=== PATIENT | male | born 1985 | race Caucasian/White ===

== ENCOUNTER 2017-10-20 00:30 | Emergency (ER) | payer OTHER ==
[~2017-10-20] VITALS: Ht 165.1 cm; Wt 72.6 kg
[2017-10-20 00:34] VITALS: BP 120/49
--- NOTE | 2017-10-20 00:41 | ED NECK/BACK PAIN COMPLAINT ---
History of Present Illness General Chief Complaint: Low Back Pain/Injury Stated Complaint: LWR BACK SOLOMON, [facility] Source: patient Exam Limitations: no limitations Vital Signs & Intake/Output Vital Signs & Intake/Output Vital Signs Date Time Temp Pulse Resp B/P B/P Pulse O2 O2 Flow FiO2 Mean Ox Delivery Rate 10/20 0034 97.5 117 12 120/49 100 Room Air Allergies Coded Allergies: No Known Drug Allergies (NKDA 10/20/17) Reconcile Medications Cyclobenzaprine HCl 10 MG TABLET 1 TAB PO TID PRN MUSCLE SPASM Ibuprofen 800 MG TABLET 1 TAB PO TID PRN pain Oxycodone HCl/Acetaminophen (Percocet 5-325 MG Tablet) 5 MG-325 MG TABLET 1 TAB PO 4XDP PRN PAIN TEN...[id number] Triage Note: PT TO ED C/O LOW BACK PAIN CONSTANT FOR A WEEK. DENIES INJURY. DENIES UTI S/S. "I CAN HARDLY GET OUT OF BED" PT SOBBING IN TRIAGE. IS BAREFOOT. "I COULDN'T GET MY SHOES ON" "I'VE BEEN TAKING TYLENOL AND IBUPROFIN BUT IT'S NOT HELPING. LAST TOOK AT 0300, NONE ALL DAY Triage Nurses Notes Reviewed? yes Onset: Gradual Duration: day(s):, waxing and waning Timing: recent history Quality/Severity: moderate Location: lumbar spine Radiation: none Method of Injury: unknown Loss of Consciousness: no loss of consciousness Modifying Factors: movement Associated Symptoms: muscle spasm HPI: 31 YO GENTLEMAN in prior good health presents to ED with right sided lower lumbar pain x 1 week. He notes "the pain is so bad I need to be admitted to the hospital." He last took ibuprofen 22 hours ago, "because I didn't have any money for medications." He notes pain and muscle spasm with movement. He notes no recent trauma, no bowel or bladder issues. He is otherwise well. Past History Travel History Traveled to [place] past 21 day No Medical History Any Pertinent Medical History? see below for history Respiratory: asthma Surgical History Surgical History: non-contributory Psychosocial History What is your primary language Belarusian Tobacco Use: Current Daily Use Daily Tobacco Use Amount/Type: => 5 Cigarettes daily ETOH Use: occasional use Illicit Drug Use: denies illicit drug use Family History Hx Contributory? No Review of Systems Review of Systems Constitutional: Reports: no symptoms. Eyes: Reports: no symptoms. Ears, Nose, Throat, Mouth: Reports: no symptoms. Respiratory: Reports: no symptoms. Cardiovascular: Reports: no symptoms. Gastrointestinal/Abdominal: Reports: no symptoms. Musculoskeletal: Reports: no symptoms. Skin: Reports: no symptoms. Neurological/Psychological: Reports: no symptoms. All Other Systems: Reviewed and Negative Physical Exam Physical Exam General Appearance: well developed/nourished, mild distress Head: atraumatic Eyes: Bilateral: normal appearance. Ears, Nose, Throat, Mouth: hearing grossly normal Neck: normal inspection, supple, full range of motion, normal alignment Respiratory: normal breath sounds Cardiovascular: regular rate/rhythm Gastrointestinal: soft, non-tender Back: normal inspection, muscle spasm, no vertebral tenderness, right lower lumber muscle spasm to palpation. no focal bony tenderness. no rash. no swelling. Extremities: normal range of motion Neurologic/Psych: awake, alert, oriented x 3, normal mood/affect Skin: intact, normal color, warm/dry Comments: dtr's, light touch, strength in lower extremities is intact. Core Measures CVA/TIA Diagnosis: No Progress Differential Diagnosis: muscle spasm vs disc herniation vs other. Plan of Care: Current Medications Sig/Sue Start time Last Medication Dose Stop Time Status Admin Cyclobenzaprine HCl 10 MG ONCE ONE 10/20 99 UNVr (Flexeril 10MG Tab) 10/20 100 Ketorolac 60 MG ONCE ONE 10/20 99 UNVr Tromethamine 10/20 100 (Toradol) Oxycodone/ 1 TAB ONCE ONE 10/20 99 UNVr Acetaminophen 10/20 100 (Percocet) Departure Departure Disposition: HOME OR SELF CARE Condition: Stable Clinical Impression Primary Impression: Back pain Referrals: Patient Has No Primary Care Dr (PCP/Family) Additional Instructions: follow up with primary care Departure Forms: Customer Survey General Discharge Information Prescriptions: Current Visit Scripts Ibuprofen 1 TAB PO TID PRN pain #30 TAB Cyclobenzaprine HCl 1 TAB PO TID PRN MUSCLE SPASM #30 TAB Oxycodone HCl/Acetaminophen (Percocet 5-325 MG Tablet) 1 TAB PO 4XDP PRN PAIN #10 TAB TEN...[id number] Comments benign neuro exam. pt with muscle spasm on exam and hadn't taken meds in 22 hours... pt referred to primary care to consider PT referral, close follow up advised.
[2017-10-20] MEDS ORDERED: CYCLOBENZAPRINE10 M1 PO (00:49)
[2017-10-20] MEDS ORDERED: IBUPROFEN800 M1 PO (00:49)
[2017-10-20] MEDS ORDERED: PERCOCET 5-3251 EACH PO (00:49)
== END 2017-10-20 01:02 ==
LOC: ERH 00:30
DX: M54.5 Low back pain (principal)
CPT/HCPCS: 96372; J1885

== ENCOUNTER 2017-10-25 05:27 | Inpatient (IN) | payer OTHER ==
[~2017-10-25] VITALS: Ht 167.6 cm; Wt 85.3 kg
[~2017-10-25 05:27] MED LIST: CYCLOBENZAPRINE10 M1 PO; IBUPROFEN800 M1 PO; PERCOCET 5-3251 EACH PO
--- NOTE | 2017-10-25 05:55 | ED NECK/BACK PAIN COMPLAINT ---
See Addendum History of Present Illness General Chief Complaint: Low Back Pain/Injury Stated Complaint: BIBA LOWER BACK PAIN Source: patient, old records, EMS Exam Limitations: no limitations Vital Signs & Intake/Output Vital Signs & Intake/Output Vital Signs Date Time Temp Pulse Resp B/P B/P Pulse O2 O2 Flow FiO2 Mean Ox Delivery Rate 10/25 0750 97.2 104 18 127/57 99 Room Air 10/25 0534 Room Air 10/25 0530 97.1 108 20 119/51 99 Room Air Allergies Coded Allergies: No Known Drug Allergies (NKDA 10/20/17) Reconcile Medications Cyclobenzaprine HCl 10 MG TABLET 1 TAB PO TID PRN MUSCLE SPASM Ibuprofen 800 MG TABLET 1 TAB PO TID PRN pain Oxycodone HCl/Acetaminophen (Percocet 5-325 MG Tablet) 5 MG-325 MG TABLET 1 TAB PO 4XDP PRN PAIN TEN...[id number] Triage Note: PT BIBA FROM HOME C/O L LOWER BACK AND LEG PAIN. HX SCIATICA. PER PT SEEN HERE COUPLE DAYS AGO FOR SAME, GIVEN FLEXERIL AND IBUPROFEN WITH GOOD EFFECT BUT PER PT "IS NOW UNBEARABLE, IT'S NOT HELPING." PT SATTING 99% ON RA, EMS HAD PT ON 02 FOR COMFORT. PT REQUESTING TO BE PLACED BACK ON 02 ON ARRIVAL, PLACED ON 1L NC FOR COMFORT PER PT REQUEST. Triage Nurses Notes Reviewed? yes Onset: Last week Duration: day(s):, constant, continues in ED Timing: recent history Quality/Severity: severe, sharpness Location: lumbar spine, paraspinous muscles Radiation: buttocks, upper legs Method of Injury: unknown Loss of Consciousness: no loss of consciousness Modifying Factors: immobilization, jarring, movement, pain medication Associated Symptoms: muscle spasm HPI: 2 weeks prior to admission patient complains of increasing left low back pain sharp moderate severe associated with limited range of motion worse and movement palpation. He was seen 5 days ago prescribed ibuprofen and Flexeril Percocet with some relief. Returns with continued pain in complains of productive cough with wheezing. He denies fever chills nausea vomiting diarrhea abdominal pain chest pain shortness of breath headache dysuria rash bleeding change in bowel bladder habit change in motor sensory function. (Gila DELONG,Alex) Past History Travel History Traveled to [place] past 21 day No Medical History Any Pertinent Medical History? see below for history Neurological: NONE EENT: NONE Cardiovascular: NONE Respiratory: asthma Gastrointestinal: NONE Hepatic: NONE Renal: NONE Musculoskeletal: sciatica Psychiatric: NONE Endocrine: NONE Blood Disorders: NONE Cancer(s): NONE PRODUCT DEVELOPMENT/Reproductive: NONE Surgical History Surgical History: non-contributory Psychosocial History What is your primary language Azeri Tobacco Use: Current Not Daily Family History Hx Contributory? No (Alex Uriostegui MD) Review of Systems Review of Systems Constitutional: Reports: no symptoms. Eyes: Reports: no symptoms. Ears, Nose, Throat, Mouth: Reports: no symptoms. Respiratory: Reports: no symptoms. Cardiovascular: Reports: no symptoms. Gastrointestinal/Abdominal: Reports: no symptoms. Musculoskeletal: Reports: see HPI, back pain, muscle pain, muscle stiffness. Skin: Reports: no symptoms. Neurological/Psychological: Reports: no symptoms. All Other Systems: Reviewed and Negative (Alex Uriostegui MD) Physical Exam Physical Exam General Appearance: well developed/nourished, alert, awake, anxious, moderate distress Head: atraumatic, normal appearance Eyes: Bilateral: normal appearance, PERRL, EOMI. Ears, Nose, Throat, Mouth: hearing grossly normal Neck: normal inspection, supple, full range of motion, normal alignment Respiratory: normal breath sounds, chest non-tender, no respiratory distress, quiet respiration, lungs clear Cardiovascular: regular rate/rhythm, normal peripheral pulses, norml femoral pulses equa Peripheral Pulses: 4+ carotid (R), 4+ carotid (L) Gastrointestinal: normal bowel sounds, soft, non-tender, no organomegaly Genital/Rectal: normal rectal exam, heme negative stool (no stool,exam glove heme neg) Back: normal inspection, decreased range of motion, muscle spasm Extremities: non-tender, normal range of motion Straight Leg Raising: Right: Pain at ____ degrees (5). Left: Pain at ____ degrees (5). Sensory: Medial Le: L4R, L4L. Top of Foot: 2: L5R, L5L. Sole of Foot: 2: SIR, OG. Motor: Deficit L4 Right: No Deficit L4 Left: No Deficit L5 Right: No Deficit L5 Left: No Deficit S1 Right: No Deficit S1 Right: No DTR: Deficit L4 Left: No Deficit L4 Right: No Deficit S1 Left: No Deficit S1 Right: No Patellar: 3: L4 Right, L4 Left. Neurologic/Psych: no motor/sensory deficits, awake, alert, oriented x 3, normal mood/affect, front desk II-XII nml as tested Skin: intact, normal color, warm/dry Core Measures CVA/TIA Diagnosis: No (Gila DELONG,Alex) Progress Differential Diagnosis: herniated disc, myofascial strain, sciatica Plan of Care: Orders Procedure Date/time Status Nothing by Mouth 10/25 L Active Patient Data 10/25 1644 Active ED Holding Orders 10/25 853 Active Admit to inpatient 10/25 853 Active Vital Signs 10/25 853 Active Code Status 10/25 853 Active CBC WITHOUT DIFFERENTIAL 10/25 708 Complete TYPE & SCREEN (NOT X-MATCH) 10/25 708 Complete MAGNESIUM 10/25 552 Complete COMPREHENSIVE METABOLIC PANEL 10/25 552 Complete CBC WITHOUT DIFFERENTIAL 10/25 552 Complete Laboratory Tests 10/25/17 0721: CBC w Diff NO MAN DIFF REQ, RBC 3.03 L, MCV 73.9 L, MCH 24.0 L, MCHC 32.4 L, RDW 16.6 H, MPV 7.7, Gran % 82.2 H, Lymphocytes % 11.7 L, Monocytes % 5.7, Eosinophils % 0.1, Basophils % 0.3, Absolute Granulocytes 8.0 H, Absolute Lymphocytes 1.1 L, Absolute Monocytes 0.6, Absolute Eosinophils 0, Absolute Basophils 0 10/25/17 0600: Anion Gap 11, Estimated GFR > 60, BUN/Creatinine Ratio 21.7, Glucose 104 H, Calcium 8.3 L, Magnesium 1.8, Total Bilirubin 1.1, AST 25, ALT 42, Alkaline Phosphatase 142 H, Total Protein 5.9 L, Albumin 2.9 L, Globulin 3.0, Albumin/ Globulin Ratio 1.0 L, CBC w Diff NO MAN DIFF REQ, RBC 3.00 L, MCV 73.9 L, MCH 24.0 L, MCHC 32.5 L, RDW 16.6 H, MPV 8.0, Gran % 82.9 H, Lymphocytes % 10.7 L, Monocytes % 6.0, Eosinophils % 0.1, Basophils % 0.3, Absolute Granulocytes 8.3 H, Absolute Lymphocytes 1.1 L, Absolute Monocytes 0.6, Absolute Eosinophils 0, Absolute Basophils 0 Diagnostic Imaging: Viewed by Me: Radiology Read. Discussed w/RAD: Radiology Read. Hand-Off Endorsed To: Sixto Michaels DO Endorsed Time: 709 Pending: labs, Xray (Alex Uriostegui MD) Departure Departure Disposition: STILL A PATIENT Condition: Stable Referrals: Patient Has No Primary Care Dr (PCP/Family) Departure Forms: Customer Survey General Discharge Information (Alex Uriostegui MD) Departure Clinical Impression Primary Impression: Pyriformis syndrome Secondary Impressions: Anemia, Back pain, Intractable back pain Comments 09/25/17 The patient was signed out to me by Dr. Uriostegui. He has significant anemia. He' s been taking large amounts of ibuprofen for his intractable back pain. He is therefore being admitted to the hospital for suspected GI bleed. I spoke to the on-call bioinformatics specialist Dr. Miguel. She instructed me to keep the patient nothing by mouth give IV Protonix and she will see the patient. Admission Note Spoke With: Joshua DELONG,Maureen Documentation of Exam: Documentation of any treatments & extenuating circumstances including Concerns Regarding Discharge (functional status, medication knowledge or non-compliance, living conditions, etc.) that warrant an admission rather than observation: [The patient needs admission for IV narcotic pain medication, IV Protonix, GI consultation, serial hemoglobin and hematocrit, probable upper endoscopy] (Sixto Michaels DO)
[2017-10-25 06:34] LABS: ABSOLUTE BASOPHIL COUNT 0 /CUMM (0.0-0.2); ABSOLUTE EOSINOPHIL COUNT 0 /CUMM (0.0-0.7); ABSOLUTE GRANULOCYTE CT 8.3 /CUMM (1.4-6.5); ABSOLUTE LYMPH COUNT 1.1 /CUMM (1.2-3.4); ABSOLUTE MONOCYTE COUNT 0.6 /CUMM (0.10-0.60); BASOPHIL % 0.3 % (0.0-2.0); EOSINOPHIL % 0.1 % (0-5); GRANULOCYTE % 82.9 % (42.2-75.2); HEMATOCRIT 22.2 % (42-52); MEAN CORPUSCULAR HGB CONC 32.5 G/DL (33.0-37.0); MEAN CORPUSCULAR VOLUME 73.9 FL (80.0-94.0); PLATELET COUNT 458 /CUMM (130-400); RBC DISTRIBUTION WIDTH 16.6 % (11.5-14.5)
[2017-10-25 07:38] LABS: ABSOLUTE BASOPHIL COUNT 0 /CUMM (0.0-0.2); ABSOLUTE EOSINOPHIL COUNT 0 /CUMM (0.0-0.7); ABSOLUTE LYMPH COUNT 1.1 /CUMM (1.2-3.4); ABSOLUTE MONOCYTE COUNT 0.6 /CUMM (0.10-0.60); BASOPHIL % 0.3 % (0.0-2.0); EOSINOPHIL % 0.1 % (0-5); GRANULOCYTE % 82.2 % (42.2-75.2); HEMATOCRIT 22.4 % (42-52); MEAN CORPUSCULAR HGB CONC 32.4 G/DL (33.0-37.0); MEAN CORPUSCULAR VOLUME 73.9 FL (80.0-94.0); MEAN PLATELET VOLUME 7.7 FL (7.4-10.4); PLATELET COUNT 477 /CUMM (130-400); RBC DISTRIBUTION WIDTH 16.6 % (11.5-14.5); RED BLOOD CELL CT 3.03 /CUMM (4.70-6.10); WHITE BLOOD CELL COUNT 9.7 /CUMM (4.8-10.8)
--- NOTE | 2017-10-25 08:10 | RADIOLOGY REPORT ---
EXAMINATION:\H\ \N\XR CHEST CLINICAL INFORMATION: Cough and wheezing COMPARISON: None TECHNIQUE: Frontal view of the chest was obtained. FINDINGS: Heart size within normal limits. Diffuse bilateral interstitial opacities. No focal airspace opacification. No pleural effusion or pneumothorax. Osseous structures are unremarkable. IMPRESSION: Diffuse bilateral interstitial opacities. This could represent infectious/inflammatory airways disease, interstitial pneumonitis or viral pneumonia can have a similar appearance. Interstitial edema could have this appearance although the absence of cardiomegaly and pleural effusions argues against a cardiogenic cause.
--- NOTE | 2017-10-25 08:15 | RADIOLOGY REPORT ---
EXAMINATION: XR LUMBOSACRAL SPINE CLINICAL INFORMATION: Low back pain COMPARISON: None TECHNIQUE: 4 views of the lumbosacral spine were obtained. FINDINGS: There is no evidence of acute fracture. Vertebral body heights and intervertebral disc spaces are maintained. There are bilateral L5 pars defects with grade 1 anterolisthesis of L5 on S1. The sacrum is intact. Sacroiliac joints are symmetric. Soft tissues are unremarkable. IMPRESSION: No evidence of acute fracture or traumatic malalignment. There are bilateral L5 pars defects with grade 1 anterolisthesis of L5 on S1.
--- NOTE | 2017-10-25 09:16 | History & Physical ---
Lucia DELONG,[facility] 10/25/17 0916: General Information and HPI MD Statement: I have seen and personally examined SON AZEVEDO and documented this H&P. The patient is a 31 year old M who presented with a patient stated chief complaint of [low back pain]. Source of Information: patient Exam Limitations: no limitations History of Present Illness: Patient is a 31-year-old male very poor historian with past medical history of asthma presented with chief complaint of low back pain for several weeks. Patient reported constant sharp severe low back pain radiating to the left leg not associated with motor weakness or numbness. Denied any urine or stool incontinence. Patient was so severe to debilitate his life. Patient reported being bedridden for the last couple of weeks because of the pain reported spasm upon moving, coughing or sneezing mainly in the left leg. Patient denied fever or chills however reported night sweats and significant weight loss. Patient denied history of IV drug use.. Patient reported ingestion of "tons" of NSAIDs for pain. Denied any hemoptysis , hematemesis, melena or hematochezia. Patient denied dizziness, blurry vision, chest pain, palpitation. He reported shortness of breath that he referred to it as his asthma. Patient denied any history of bleeding, diathesis, sickle cell anemia or thalassemia. Denied any previous report of low hemoglobin or anemia. Denied history of transfusion. Denied history of any previous surgical operation. Patient reported history of left leg pain in June 2017, had a visit to [facility], was treated with Xarelto for 1 day for suspected DVT however had negative ultrasound per his report. The patient also went to [facility] where he had an MRI left leg and was told to have infection, patient received 1 dose of antibiotic and then discharged home after he spent overnight in the emergency room off antibiotics. This history is not clear and was given later in the day after disclosing the results of his MRI spine of osteomyelitis L5-S1. We are obtaining records from [facility] for clarification. 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 Home Who Do You Live With? roommite Services at Home: None Primary Language: Divehi Smoking Status: Current Some Day Smoker ETOH Use: occasional use Illicit Drug Use: marijuana Living Will? unknown Functional Ability ADLs Independent: dressing, eating, toileting, bathing. 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 Denies: chills, fever. EENTM: Denies: double vision, ear pain. Cardiovascular: Denies: chest pain, palpitations, peripheral edema, syncope. Respiratory: Reports: short of breath. Denies: cough, wheezing. GI: Denies: abdominal pain. Genitourinary: Denies: frequency, hematuria, hesitation. Musculoskeletal: Denies: back pain, joint pain, muscle pain. Skin: Denies: lesions, rash. Neurological/Psychological: Denies: confusion, headache, numbness, paresthesia. Hematologic/Endocrine: Denies: bruising, bleeding. Exam & Diagnostic Data Last 24 Hrs of Vital Signs/I&O Vital Signs Date Time Temp Pulse Resp B/P B/P Pulse O2 O2 Flow FiO2 Mean Ox Delivery Rate 10/25 1443 98.5 68 20 110/75 97 Room Air 10/25 1137 98.2 103 22 110/70 97 Room Air 10/25 0750 97.2 104 18 127/57 99 Room Air 10/25 0534 Room Air 10/25 0530 97.1 108 20 119/51 99 Room Air Intake & Output 10/25 1600 10/25 0800 10/25 0000 Intake Total 0 Output Total 300 Balance -300 0 Intake, Oral 0 Output, Urine 300 Patient 85.275 kg 77.111 kg Weight Weight Bed scale Reported by Patient Measurement Method Physical Exam General Appearance Alert, Oriented X3, Cooperative, Mild Distress Skin No Rashes, No Breakdown, No Significant Lesion, No oral mucous memebrane pathology Skin Temp/Moisture Exam: Warm/Dry HEENT Atraumatic, PERRLA, EOMI, Mucous Membr. moist/pink Neck Supple Lymphatic no cervicallymphadenopathy Cardiovascular Regular Rate, Normal S1, Normal S2, No Murmurs Lungs Clear to Auscultation, Normal Air Movement Abdomen Normal Bowel Sounds, Soft, No Tenderness Neurological Normal Speech, Strength at 5/5 X4 Ext, Normal Tone, Sensation Intact, Cranial Nerves 3-12 NL, Reflexes 2+, left straight leg test positive vertebral tenderness of lumber spine, paraspinal muscle spasm Extremities No Clubbing, No Cyanosis, No Edema, Normal Pulses Rectal Guiac Negative Assessment/Plan Assessment: Patient is a 31-year-old male very poor historian with past medical history of asthma presented with chief complaint of low back pain for several weeks. Vital signs on admission at febrile temperature 97.1, 108, blood pressure 119/51 , saturating 99% on room air Labs significant for white blood cell 10, H&H 7.2/22.2, MCV 73.9, platelet 458, BUN/creatinine 13/0.6, alkaline phosphatase 148. Chest x-ray showed diffuse bilateral interstitial infiltrates that can represent inflammatory airway versus infectious cause. X-ray of lumber spine No evidence of acute fracture or traumatic malalignment. There are bilateral L5 pars defects with grade 1 anterolisthesis of L5 on S1. Problem list #Intractable lower back pain. Differential diagnosis include herniating disc given lumbar spine tenderness with positive left straight leg test, ankylosing spondylitis given his age, symptoms for multiple weeks improve with NSAIDs, constitutional symptoms weight loss and night sweats #Microcytic hypochromic anemia with negative upper endoscopy for upper GI bleed differential include iron deficiency anemia versus thalassemia Plan Admit to general medical floor Vitals every shift Typed and cross matched Iron studies, vitamin D, folate and vitamin B12 Peripheral smear Reticulocyte count C-reactive protein and ESR MRI lumbar spine Urine toxicology Coagulation profile Adequate pain management Diet regular DVT prophylaxis Alps Code full ##Received a call from [facility] for MRI lumbar spine results of osteomyelitis in L5, S1 with adjacent epidural phlegmon in which epidural abscess can't be excluded. Diffuse decrease bone marrow signaL. IMPRESSION: - Imaging findings are most compatible with osteomyelitis discitis at L5-S1 with adjacent epidural phlegmon resulting in mild narrowing of the central canal and partial effacement of the subarticular zones bilaterally, contacting the traversing S1 nerve roots bilaterally. Postcontrast imaging could be obtained to assess for any discrete abscesses. - As noted on the recent plain films there are bilateral L5 pars defects and there is grade 1 spondylolytic anterolisthesis of L5 on S1 with listhesis, uncovered disc, and degenerative changes resulting in severe bilateral foraminal stenosis at L5-S1 with compression of the exiting L5 nerve roots bilaterally, greater on the left side. - There is decreased marrow signal throughout the imaged spinal elements and bony pelvis. I confirmed with the referring clinician that this patient has underlying anemia and the low marrow signal is most likely attributable to anemia. Marrow replacement processes could appear similar. - The partially imaged bladder is significantly distended. Based on MRI results, after discussing with the attending Dr. Hernandez. -Obtain ID consultation---recommendation to follow off antibiotics -Obtain hematology consultation--- recommendation for bone vora biopsy -Obtain neurosurgery consultation--- pending recommendation -Contact IR for bone biopsy--- patient is set up for CT guided bone biopsy and bone marrow biopsy. Patient will be nothing by mouth at midnight, avoid NSAIDs and anticoagulation. -Obtain records from [facility]--- SENT -We'll transfuse 1 unit of blood As Ranked By This Provider Problem List: 1. Back pain 2. Osteomyelitis Core Measures/Misc (03/11) Acute Coronary Syndrome ACS Diagnosis: No Congestive Heart Failure Congestive Heart Failure Diagnosis No Cerebrovascular Accident CVA/TIA Diagnosis: No VTE (View Protocol) VTE Risk Factors Age>40 No Mechanical VTE Prophylaxis d/t N/A MechProphylax Ordered No VTE Pharm Prophylaxis d/t Surgical Contraindication Sepsis (View protocol) Sepsis Present: No Parminder Hernandez MD 10/25/17 1077: General Information and HPI Allergies/Medications Home Med list Cyclobenzaprine HCl 10 MG TABLET 1 TAB PO TID PRN MUSCLE SPASM Ibuprofen 800 MG TABLET 1 TAB PO TID PRN pain Oxycodone HCl/Acetaminophen (Percocet 5-325 MG Tablet) 5 MG-325 MG TABLET 1 TAB PO 4XDP PRN PAIN TEN...[id number] Zolpidem Tartrate (Ambien) 10 MG TABLET 1 TAB PO QPMP PRN SLEEP (Reported) Attending MD Review Statement Attending Statement Attending MD Statement: examined this patient, discuss w/resident/PA/MANUFACTURING SR ENGINEER, agreed w/resident/PA/MANUFACTURING SR ENGINEER, reviewed EMR data (avail), reviewed images, amended to note Attending Assessment/Plan: The patient is a 31 yo male with h/o asthma who presented in the [place] ED with c/o low back pain radiating to his left leg for several weeks. Pain was described as severe and he noted spasms. He endorsed taking large amounts of NSAIDS for pain relief and was noted to have significant anemia (heme negative stool). He underwent EGD with Dr. Miguel that was not remarkable. It was difficult to obtain history from patient who initially said he had not seen an MD (he indeed has no PCP), however he later spoke of being admitted to [facility] in [place] for leg pain (had MRI/US) transiently was on Xarelto and was discharged with subsequent admission to [facility] where he saw a surgeon who gave him some IV antibiotics. At no time was he informed that he had an anemia. He denies fever, chills, other family members with anemia (he is 100% Citizen Of [place] descent). He denied any hematemesis of blood per rectum. MRI done today suggested possible osteomyelitis/discitis L4/5. Patient stated to me he was dishonorably discharged from [employer] many years ago due to drug abuse (cocaine), however no h/o IV drug abuse or any recent drug use. He was stationed in 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 Physical Exam: VS: T 98.5, P 6, R 20, BP 110/75, PO 97% HEENT: eyes- PERRLA, EOMI sara- moist mucosa Neck: supple, no adenopathy Chest: clear Cor: RRR nl S1, S2 w/o murm Abd: BS+, soft, NT, - HSM Ext: no edema Back: + lower lumbar spasm/tenderness L>R Neuro: alert & oriented x 3, motor, sensory, DTR's LE intact Labs/Tests- as above Impression/Plan: #Intractable Back Pain - with MRI suggesting L5-S1 Discitis/?Osteomyelitis with epidural involvement. Neuro exam normal. Unclear source of infection. No h/o IV drug abuse (distant h/o cocaine use in service, no IV drugs in past). No fever, WBC normal. Appreciate ID consult. Plan: No antibiotics at present. IR to do CT guided biopsy/culture L5-S1 tomorrow. Treat with morphine/percocet/Valium for pain and spasm at present. Neurosurgical consult. #Anemia- EGD negative. Unclear if patient has baseline anemia (?thalassemia). He is of Citizen Of [place] descent. Has had bloodwork done recently at other hospitals ([facility] in [place] and [facility] in [place]) and was not informed by anyone that he was anemic. Has been using NSAIDs, however EGD negative and no history of dark stools/blood per rectum. Of note, the patient was at [place] and there are reported cases of myelodysplasia and other cancers (renal, etc.) felt due to toxin exposure in water (service connected illness). Plan: Agree with checking iron studies, B12, retic count, etc. Transfuse 1 unit. Heme/Onc evaluation. Will do bone marrow biopsy in [place] tomorrow. From [place] Website: [place] has established a presumptive service connection for Veterans, Reservists, and National Guard members exposed to contaminants in the water supply at [place] from January 23, 1953 through June 24, 1987 who later developed one of the following eight diseases: * Adult leukemia * Aplastic anemia and other myelodysplastic syndromes * Bladder cancer * Kidney cancer * Liver cancer * Multiple myeloma * Non-Hodgkin's lymphoma * Parkinson's disease Presently, these conditions are the only ones for which there is sufficient scientific and medical evidence to support the creation of presumptions; however , [place] will continue to review relevant information as it becomes available.
--- NOTE | 2017-10-25 10:40 | Proc Note Endoscopy ---
Endoscopy Procedure Medical History: unchanged Mental Status: alert/oriented Heart/Lung Eval Prior to Sedation: within normal limits Candidate for Sedation? Yes Procedure Date: 10/25/17 Procedure Type: EGD Machine Feeder Floorperson: MD Villegas Deborah E. ASA Classification: I Indications: 1. Microcytic anemia 2. Acute blood loss anemia 3. Chronic NSAID use Instrument: diagnostic gastroscope Meds Received: MAC Patient's Tolerance: good Complications: none Extent Reached: second part of duodenum Procedure: Note: Informed consent was obtained prior to procedure. Risks and benefits of procedure were discussed with patient. Potential complications discussed included perforation, bleeding, abdominal pain, and adverse reaction to medications. It was explained that iany or all of these complications could result in the need for extended hospitalization, emergency surgery, transfusion of packed red blood cells (with the risk of HIV or hepatitis virus), intubation with mechanical ventilation, and possible need for antibiotics. It was further explained that an existing tumor polyp or mucosal abnormality might not be identified at the time of the procedure thus resulting in a missed opportunity for early diagnosis and treatment of a gastrointestinal malignancy or disease with possible interval development of a gastrointestinal cancer or other disease with possible worsening of clinical condition in the interval between endoscopies. It was also discussed that complications are not limited to those listed above. Possible alternatives to endoscopic treatment or evaluation were discussed. All questions were answered. Continuous EKG and blood pressure monitors were attached. Supplemental oxygen was provided with O2 Sat monitoring. Patient was placed in the left lateral decubitus position. A surgical timeout was performed. All persons in the room were identified. All concerns were expressed and answered. A bite block was placed in the mouth and sedation was administered by anesthesia and titrated to comfort prior to starting the procedure. The Olympus upper endoscope was advanced under direct vision to the level of the third portion of the duodenum. Esophagus: The esophagus had a normal mucosal vascular pattern throughout its entirety. The GE junction was identified and was normal. The Z line was located at 43 cm from the incisors and was nondisplaced. Stomach: The stomach had a normal mucosal and vascular pattern throughout its entirety. Retroflexed view of the cardiofundic region revealed a normal mucosal and vascular pattern. There were normal rugae and normal distensibility. The pylorus was patent and easily intubated. Biopsies were obtained from the antrum , angularis, gastric body and lesser curvature to rule out H. Pylori. Duodenum: The duodenum was fully examined from bulb down to the third portion. There was a normal mucosal vascular pattern throughout. With the endoscope in the forward-viewing position, it was slowly withdrawn and all areas were re-inspected and findings are as described previously. Patient tolerated the procedure well. EBL: None Specimens Removed: None Findings: Normal upper endoscopy Impression: Normal upper endoscopy Patient may have either small bowel or colonic ulcers related to NSAID use. We' ll must also consider other etiologies for patient's microcytic anemia. Recommendations: 1. Admit for pain control given sciatica 2. Given sciatica I do not believe the patient will tolerate preparation for colonoscopy 3. Would check iron studies B12 and folate as well as stool Hemoccult 4. Patient will need outpatient colonoscopy to complete workup 5. Monitor for signs of GI blood loss. Transfuse to keep hemoglobin over 7. 6. Patient to avoid NSAIDs 7. GI will sign off for now. However do not hesitate to reconsult us as needed. Please make sure the patient has follow-up with GI after discharge.
[2017-10-25 11:37] VITALS: BP 110/70
--- NOTE | 2017-10-25 13:33 | MRI REPORT ---
MR LUMBAR SPINE WITHOUT CONTRAST CLINICAL INFORMATION: Lower back pain with x-ray positive for grade 1 anterolisthesis of L5 on S1 and L5 pars defects. COMPARISON: Lumbar spine radiographs performed earlier the same day. TECHNIQUE: MRI of the lumbar spine without contrast was obtained using routine sequences. FINDINGS: There is abnormal signal throughout the L5-S1 disc and there are T2 signal changes involving the opposing L5 and S1 endplates. There is increased signal on T2-weighted imaging within the paravertebral soft tissues at L5-S1 with these findings in constellation most concerning for the presence of osteomyelitis discitis. There is soft tissue effacement of the ventral epidural space at L5-S1, most likely ventral epidural phlegmon. Postcontrast imaging could be obtained to assess for any discrete abscesses. As noted on the recent plain films there are bilateral L5 pars defects and there is grade 1 spondylolytic anterolisthesis of L5 on S1. There is no additional bone marrow edema. No acute fractures are appreciated. There is decreased marrow signal throughout the imaged spinal elements and bony pelvis. I confirmed with the referring clinician that this patient has underlying anemia and the low marrow signal is most likely attributable to anemia. Marrow replacement processes could appear similar. The conus terminates at the L1-L2 disc level. The partially imaged bladder is significantly distended. The L1-L2, L2-L3, and L3-L4 disc contours are normal. There is no central canal stenosis and there is no foraminal stenosis at these levels. L4-L5: There is a diffuse annular disc bulge and there is mild to moderate bilateral hypertrophic facet arthropathy. No central canal stenosis. Mild foraminal narrowing bilaterally. L5-S1: Grade 1 spondylolytic anterolisthesis in the setting of bilateral L5 pars defects. Uncovered disc with a superimposed diffuse annular bulge. Epidural phlegmon contacts the traversing S1 nerve roots within the subarticular zones bilaterally. Severe bilateral foraminal stenosis with compression of the exiting L5 nerve roots bilaterally, greater on the left side. IMPRESSION: - Imaging findings are most compatible with osteomyelitis discitis at L5-S1 with adjacent epidural phlegmon resulting in mild narrowing of the central canal and partial effacement of the subarticular zones bilaterally, contacting the traversing S1 nerve roots bilaterally. Postcontrast imaging could be obtained to assess for any discrete abscesses. - As noted on the recent plain films there are bilateral L5 pars defects and there is grade 1 spondylolytic anterolisthesis of L5 on S1 with listhesis, uncovered disc, and degenerative changes resulting in severe bilateral foraminal stenosis at L5-S1 with compression of the exiting L5 nerve roots bilaterally, greater on the left side. - There is decreased marrow signal throughout the imaged spinal elements and bony pelvis. I confirmed with the referring clinician that this patient has underlying anemia and the low marrow signal is most likely attributable to anemia. Marrow replacement processes could appear similar. - The partially imaged bladder is significantly distended. These findings were discussed with Dr. Myers at 1:20 PM on 10/25/2017.
--- NOTE | 2017-10-25 14:34 | Cons- Gastroenterology ---
General Information and HPI Consulting Request Date of Consult: 10/25/17 Requested By: Parminder Hernandez MD Reason for Consult: 1. Microcytic anemia 2. Chronic use of NSAIDs Source of Information: patient, electronic medical record Exam Limitations: no limitations History of Present Illness: Patient is a 31-year-old white male who was seen in the ED with a chief complaint of sciatic-type pain radiating down his left leg. Patient had been discharged to home on NSAIDs but returned by ambulance this morning with increasing pain requiring morphine for control. On admission patient was found to have a hemoglobin of 7 with microcytic indices. He has had no nausea vomiting or hematemesis and denies melena. He has no prior history of peptic ulcer disease. He had been feeling short of breath but denies palpitations. He has no prior history of peptic ulcer disease. Allergies/Medications Allergies: Coded Allergies: No Known Drug Allergies (NKDA 10/20/17) Home Med List: Cyclobenzaprine HCl 10 MG TABLET 1 TAB PO TID PRN MUSCLE SPASM Ibuprofen 800 MG TABLET 1 TAB PO TID PRN pain Oxycodone HCl/Acetaminophen (Percocet 5-325 MG Tablet) 5 MG-325 MG TABLET 1 TAB PO 4XDP PRN PAIN TEN...[id number] Current Medications: Current Medications Sig/Sue Start time Last Medication Dose Route Stop Time Status Admin Chlorhexidine 1 GM .STK-MED ONE 10/25 1149 DC Gluconate TOP 10/25 1150 Diazepam 2 MG 4 TIMES/DAY PRN 10/25 1315 AC 10/25 PO 1316 Enoxaparin Sodium 40 MG DAILY 10/25 1041 DC SC Ergocalciferol 50,000 IU QTHURS 10/25 1315 AC PO 12/06 0901 Ferrous Sulfate 325 MG TID 10/25 1400 AC 10/25 PO 1400 Ibuprofen 600 MG Q6 10/25 1200 DC 10/25 PO 1127 Ketorolac 0 .STK-MED ONE 10/25 06 DC Tromethamine .ROUTE Ketorolac 30 MG ONCE ONE 10/25 06 DC 10/25 Tromethamine IV 10/25 600 0606 Lorazepam 0 .STK-MED ONE 10/25 0602 DC .ROUTE Lorazepam 1 MG ONCE ONE 10/25 0600 DC 10/25 IV 10/25 0601 0606 Morphine Sulfate 2 MG Q6P PRN 10/25 1400 AC IV Morphine Sulfate 0 .STK-MED ONE 10/25 0722 DC .ROUTE Morphine Sulfate 4 MG ONCE ONE 10/25 0715 DC 10/25 IV 10/25 0716 0721 Oxycodone/ 2 TAB Q6P PRN 10/25 1415 AC Acetaminophen PO Oxycodone/ 1 TAB ONCE ONE 10/25 1400 DC / Acetaminophen PO 10/25 1401 1412 Oxycodone/ 1 TAB Q6P PRN 10/25 1300 DC 10/25 Acetaminophen PO 1316 Pantoprazole Sodium 0 .STK-MED ONE 10/25 0920 DC IV Pantoprazole Sodium 40 MG ONCE ONE 10/25 0900 DC 10/25 IV 10/25 0901 0916 Polyethylene Glycol 17 GM DAILY 10/26 0900 AC PO Past History Travel History Traveled to [place] past 21 day No Medical History Neurological: NONE EENT: NONE Cardiovascular: NONE Respiratory: asthma Gastrointestinal: NONE Hepatic: NONE Renal: NONE Musculoskeletal: sciatica Psychiatric: NONE Endocrine: NONE Blood Disorders: NONE Cancer(s): NONE RN 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/Reproductive: NONE Surgical History Surgical History: non-contributory Psychosocial History Smoking Status: Light Tobacco Smoker Exam & Diagnostic Data Vital Signs and I&O Vital Signs Date Time Temp Pulse Resp B/P B/P Pulse O2 O2 Flow FiO2 Mean Ox Delivery Rate 10/25 1137 98.2 103 22 110/70 97 Room Air 10/25 0750 97.2 104 18 127/57 99 Room Air 10/25 0534 Room Air 10/25 0530 97.1 108 20 119/51 99 Room Air Intake & Output 10/25 1600 10/25 0400 10/24 1600 10/24 0400 10/23 1600 10/23 0400 Intake Total 0 Output Total Balance 0 Intake, Oral 0 Patient 188 lb Weight Weight Bed scale Measurement Method Physical Exam General Appearance: well developed/nourished, alert, awake, moderate distress Head: atraumatic, normal appearance Eyes: Bilateral: normal appearance. Ears, Nose, Throat: hearing grossly normal Neck: normal inspection, supple, full range of motion Respiratory: normal breath sounds, lungs clear Cardiovascular: regular rate/rhythm, Normal S1 and S2, without rub, murmur, or gallop. Gastrointestinal: normal bowel sounds, soft, non-tender Extremities: normal inspection, no edema Neurologic/Psych: awake, alert, oriented x 3 Cranial Nerves: cranial nerves II-12 grossly intact Skin: intact, normal color, warm/dry Results Pertinent Lab Results: Laboratory Tests 10/25 10/25 10/25 1405 1310 1305 Coagulation PT Pending INR Pending APTT Pending Hematology ESR Westergren Pending Toxicology Methadone Screen (>300 NG/ML) Pending Barbiturate Screen (>200 NG/ML) Pending Ur Phencyclidine Scrn (>25 NG/ML) Pending Amphetamines Screen (>1000 NG/ML) Pending U Benzodiazepines Scrn (>200 NG/ML) Pending Urine Cocaine Screen (>300 NG/ML) Pending Urine Cannabis Screen (>50 NG/ML) Pending Urines Urine Color (YEL,AMB,STR) YEL Urine Clarity (CLEAR) CLEAR Urine pH (5.0 - 8.0) 6.0 Ur Specific [place] (1.001 - 1.035) 1.010 Urine Protein (NEG,<30 MG/DL) NEG Urine Ketones (NEG) NEG Urine Nitrite (NEG) NEG Urine Bilirubin (NEG) NEG Urine Urobilinogen (0.1 - 1.0 EU/dl) 0.2 Ur Leukocyte Esterase (NEG) NEG Ur Microscopic EXAM NOT REQUIRED Urine Hemoglobin (NEG) NEG Urine Glucose (N MG/DL) NEG 10/25 10/25 1042 0721 Chemistry C-Reactive Prot, Quant Cancelled Hematology CBC w Diff NO MAN DIFF REQ WBC (4.8 - 10.8 /CUMM) 9.7 RBC (4.70 - 6.10 /CUMM) 3.03 L Hgb (14.0 - 18.0 G/DL) 7.3 *L Hct (42 - 52 %) 22.4 L MCV (80.0 - 94.0 FL) 73.9 L MCH (27.0 - 31.0 PG) 24.0 L MCHC (33.0 - 37.0 G/DL) 32.4 L RDW (11.5 - 14.5 %) 16.6 H Plt Count (130 - 400 /CUMM) 477 H MPV (7.4 - 10.4 FL) 7.7 Gran % (42.2 - 75.2 %) 82.2 H Lymphocytes % (20.5 - 51.1 %) 11.7 L Monocytes % (1.7 - 9.3 %) 5.7 Eosinophils % (0 - 5 %) 0.1 Basophils % (0.0 - 2.0 %) 0.3 Absolute Granulocytes (1.4 - 6.5 /CUMM) 8.0 H Absolute Lymphocytes (1.2 - 3.4 /CUMM) 1.1 L Absolute Monocytes (0.10 - 0.60 /CUMM) 0.6 Absolute Eosinophils (0.0 - 0.7 /CUMM) 0 Absolute Basophils (0.0 - 0.2 /CUMM) 0 Retic Count (0.5 - 2.0 %) Pending 10/25 0600 Chemistry Sodium (137 - 145 mmol/L) 139 Potassium (3.5 - 5.1 mmol/L) 3.6 Chloride (98 - 107 mmol/L) 104 Carbon Dioxide (22 - 30 mmol/L) 24 Anion Gap (5 - 16) 11 BUN (9 - 20 mg/dL) 13 Creatinine (0.7 - 1.2 mg/dL) 0.6 L Estimated GFR (>60 ml/min) > 60 BUN/Creatinine Ratio (7 - 25 %) 21.7 Glucose (65 - 99 mg/dL) 104 H Calcium (8.4 - 10.2 mg/dL) 8.3 L Magnesium (1.6 - 2.3 mg/dL) 1.8 Iron (49 - 181 ug/dL) 30 L TIBC (261 - 462 ug/dL) 231 L Ferritin (17.9 - 464 ng/mL) 414.0 Total Bilirubin (0.2 - 1.3 mg/dL) 1.1 AST (17 - 59 U/L) 25 ALT (21 - 72 U/L) 42 Alkaline Phosphatase (< 127 U/L) 142 H C-Reactive Prot, Quant (<1.0 mg/dL) > 9.0 H Total Protein (6.3 - 8.2 g/dL) 5.9 L Albumin (3.5 - 5.0 g/dL) 2.9 L Globulin (1.9 - 4.2 gm/dL) 3.0 Albumin/Globulin Ratio (1.1 - 2.2 %) 1.0 L Vitamin B12 (239 - 931 pg/mL) 415 25-OH Vitamin D Total (30 - 100 ng/ml) 7.9 L Folate (2.76 - 20.0 ng/mL) 8.3 Hematology CBC w Diff NO MAN DIFF REQ WBC (4.8 - 10.8 /CUMM) 10.0 RBC (4.70 - 6.10 /CUMM) 3.00 L Hgb (14.0 - 18.0 G/DL) 7.2 *L Hct (42 - 52 %) 22.2 L MCV (80.0 - 94.0 FL) 73.9 L MCH (27.0 - 31.0 PG) 24.0 L MCHC (33.0 - 37.0 G/DL) 32.5 L RDW (11.5 - 14.5 %) 16.6 H Plt Count (130 - 400 /CUMM) 458 H MPV (7.4 - 10.4 FL) 8.0 Gran % (42.2 - 75.2 %) 82.9 H Lymphocytes % (20.5 - 51.1 %) 10.7 L Monocytes % (1.7 - 9.3 %) 6.0 Eosinophils % (0 - 5 %) 0.1 Basophils % (0.0 - 2.0 %) 0.3 Absolute Granulocytes (1.4 - 6.5 /CUMM) 8.3 H Absolute Lymphocytes (1.2 - 3.4 /CUMM) 1.1 L Absolute Monocytes (0.10 - 0.60 /CUMM) 0.6 Absolute Eosinophils (0.0 - 0.7 /CUMM) 0 Absolute Basophils (0.0 - 0.2 /CUMM) 0 Assessment/Plan Assessment/Recommendations: ASSESSMENT: 1. Probable acute blood loss anemia 2. Chronic use NSAIDs 3. Sciatica Although given patient's use of increased doses of NSAIDs suggest peptic ulcer disease as an etiology for his microcytic anemia, his BUN/creatinine are not increased and his RDW was only 16.6. However, it would be simple to rule out peptic ulcer disease as this might have an impact on further therapy. RECOMMENDATIONS: 1. Urgent EGD 2. Protonix 40 mg by mouth twice a day 3. Stool Hemoccult 4. Iron studies, B12 and folate Consult Acknowledgment - Thank you for your consult request.
[2017-10-25 14:43] VITALS: BP 110/75
[2017-10-25 15:16] LABS: PT 16.3 SEC (9.4-12.5); PTT 29 SEC (25-37)
--- NOTE | 2017-10-25 16:33 | Cons- Infect Disease ---
General Information and HPI Consulting Request Date of Consult: 10/25/17 Requested By: Parminder Hernandez MD Reason for Consult: Discitis/osteomyelitis L5-S1 Source of Information: patient, old records History of Present Illness: This is a 31-year-old male with a history of asthma, seen in the [place] emergency room approximately 2 months prior to admission with 1 week of increasing left calf pain, discharged on Xarelto and analgesics with no specific diagnosis made, hospitalized at [facility] 1 week later because of persistent left calf pain, treated with 2 days of IV antibiotics with resolution of his pain, but with no diagnosis made, who was well until 2 weeks prior to admission when he developed severe low back pain, radiating down the left leg, seen in the emergency room at [place] 5 days prior to admission and discharged on Ibuprofen, Flexeril and Percocet, admitted today after returning to the emergency room with persistent back pain, radiating down the left leg, associated with sweats but with no fevers or chills. On arrival to the emergency room he was found to be afebrile. His stools were guaiac negative. Laboratory data revealed a white blood cell count of 10,000, H&H 7 and 22, with MCV of 74, platelets 458,000, BUN/creatinine 13 and .6, alkaline phosphatase 142 , C-reactive protein greater than 9, INR 1.49/PTT normal. Urinalysis negative. Chest x-ray revealed diffuse bilateral interstitial opacities. X-ray of the lumbosacral spine revealed bilateral L5 pars defect with grade 1 anterolisthesis of L5 on S1. An MRI of the lumbosacral spine revealed findings most compatible with osteomyelitis/discitis at L5-S1, with an adjacent epidural phlegmon. He was evaluated by GI and underwent an upper endoscopy, which was normal. He denies any recent trauma or intervention. He has had no recent dental work. He does report cutting his left great toenail short to the point of bleeding at the time of his recent [place] hospitalization. He is of [place] descent but is not aware of any personal or family history of anemia. He has no respiratory complaints. 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 Home Who Do You Live With? [facility] Services at Home: None Primary Language: French Smoking Status: Current Some Day Smoker ETOH Use: occasional use Illicit Drug Use: marijuana Living Will? unknown Functional Ability ADLs Independent: dressing, eating, toileting, bathing. 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 Review of Systems Review of Systems All Other Systems: Reviewed and Negative Exam & Diagnostic Data Last 24 Hrs of Vital Signs/I&O Vital Signs Date Time Temp Pulse Resp B/P B/P Pulse O2 O2 Flow FiO2 Mean Ox Delivery Rate 10/25 1443 98.5 68 20 110/75 97 Room Air 10/25 1137 98.2 103 22 110/70 97 Room Air 10/25 0750 97.2 104 18 127/57 99 Room Air 10/25 0534 Room Air 10/25 0530 97.1 108 20 119/51 99 Room Air Intake & Output 10/25 1600 10/25 0800 10/25 0000 Intake Total 0 Output Total 300 Balance -300 0 Intake, Oral 0 Output, Urine 300 Patient 188 lb 170 lb Weight Weight Bed scale Reported by Patient Measurement Method Physical Exam Other Physical Findings: He is awake and alert in no acute distress. He is afebrile. Skin reveals no rash. HEENT exam is negative. Neck is supple with no adenopathy. Lungs are clear. Heart regular rhythm with no murmur. Abdomen is soft, nontender with positive bowel sounds. Back lower vertebral tenderness, with no CVA tenderness. Extremities no cyanosis, clubbing or edema. Neuro is without focality. Last 24 Hours of Lab Results: Laboratory Tests 10/25 10/25 10/25 1405 1310 1305 Coagulation PT (9.4 - 12.5 SEC) 16.3 H INR (0.90 - 1.17) 1.49 H APTT (25 - 37 SEC) 29 Hematology ESR Westergren Pending Toxicology Urine Opiates Screen (>2000 NG/ML) 2619.00 H Methadone Screen (>300 NG/ML) 48 Barbiturate Screen (>200 NG/ML) < 60 Ur Phencyclidine Scrn (>25 NG/ML) < 6.00 Amphetamines Screen (>1000 NG/ML) < 100 U Benzodiazepines Scrn (>200 NG/ML) < 85 Urine Cocaine Screen (>300 NG/ML) 253 Urine Cannabis Screen (>50 NG/ML) > 80.00 H Urines Urine Color (YEL,AMB,STR) YEL Urine Clarity (CLEAR) CLEAR Urine pH (5.0 - 8.0) 6.0 Ur Specific [place] (1.001 - 1.035) 1.010 Urine Protein (NEG,<30 MG/DL) NEG Urine Ketones (NEG) NEG Urine Nitrite (NEG) NEG Urine Bilirubin (NEG) NEG Urine Urobilinogen (0.1 - 1.0 EU/dl) 0.2 Ur Leukocyte Esterase (NEG) NEG Ur Microscopic EXAM NOT REQUIRED Urine Hemoglobin (NEG) NEG Urine Glucose (N MG/DL) NEG 10/25 10/25 1042 0721 Chemistry C-Reactive Prot, Quant Cancelled Hematology CBC w Diff MAN DIFF ORDERED WBC (4.8 - 10.8 /CUMM) 9.7 RBC (4.70 - 6.10 /CUMM) 3.03 L Hgb (14.0 - 18.0 G/DL) 7.3 *L Hct (42 - 52 %) 22.4 L MCV (80.0 - 94.0 FL) 73.9 L MCH (27.0 - 31.0 PG) 24.0 L MCHC (33.0 - 37.0 G/DL) 32.4 L RDW (11.5 - 14.5 %) 16.6 H Plt Count (130 - 400 /CUMM) 477 H MPV (7.4 - 10.4 FL) 7.7 Gran % (42.2 - 75.2 %) 82.2 H Lymphocytes % (20.5 - 51.1 %) 11.7 L Monocytes % (1.7 - 9.3 %) 5.7 Eosinophils % (0 - 5 %) 0.1 Basophils % (0.0 - 2.0 %) 0.3 Absolute Granulocytes (1.4 - 6.5 /CUMM) 8.0 H Absolute Lymphocytes (1.2 - 3.4 /CUMM) 1.1 L Absolute Monocytes (0.10 - 0.60 /CUMM) 0.6 Absolute Eosinophils (0.0 - 0.7 /CUMM) 0 Absolute Basophils (0.0 - 0.2 /CUMM) 0 Platelet Estimate (ADEQUATE) INCREASED Polychromasia 1+ Hypochromic-Microcytic 2+ Poikilocytosis 2+ Anisocytosis 2+ Microcytic Cells 2+ Ovalocytes 1+ Schistocytes Retic Count (0.5 - 2.0 %) 4.37 H 05/03 0600 Chemistry Sodium (137 - 145 mmol/L) 139 Potassium (3.5 - 5.1 mmol/L) 3.6 Chloride (98 - 107 mmol/L) 104 Carbon Dioxide (22 - 30 mmol/L) 24 Anion Gap (5 - 16) 11 BUN (9 - 20 mg/dL) 13 Creatinine (0.7 - 1.2 mg/dL) 0.6 L Estimated GFR (>60 ml/min) > 60 BUN/Creatinine Ratio (7 - 25 %) 21.7 Glucose (65 - 99 mg/dL) 104 H Calcium (8.4 - 10.2 mg/dL) 8.3 L Magnesium (1.6 - 2.3 mg/dL) 1.8 Iron (49 - 181 ug/dL) 30 L TIBC (261 - 462 ug/dL) 231 L Ferritin (17.9 - 464 ng/mL) 414.0 Total Bilirubin (0.2 - 1.3 mg/dL) 1.1 AST (17 - 59 U/L) 25 ALT (21 - 72 U/L) 42 Alkaline Phosphatase (< 127 U/L) 142 H C-Reactive Prot, Quant (<1.0 mg/dL) > 9.0 H Total Protein (6.3 - 8.2 g/dL) 5.9 L Albumin (3.5 - 5.0 g/dL) 2.9 L Globulin (1.9 - 4.2 gm/dL) 3.0 Albumin/Globulin Ratio (1.1 - 2.2 %) 1.0 L Vitamin B12 (239 - 931 pg/mL) 415 25-OH Vitamin D Total (30 - 100 ng/ml) 7.9 L Folate (2.76 - 20.0 ng/mL) 8.3 Hematology CBC w Diff NO MAN DIFF REQ WBC (4.8 - 10.8 /CUMM) 10.0 RBC (4.70 - 6.10 /CUMM) 3.00 L Hgb (14.0 - 18.0 G/DL) 7.2 *L Hct (42 - 52 %) 22.2 L MCV (80.0 - 94.0 FL) 73.9 L MCH (27.0 - 31.0 PG) 24.0 L MCHC (33.0 - 37.0 G/DL) 32.5 L RDW (11.5 - 14.5 %) 16.6 H Plt Count (130 - 400 /CUMM) 458 H MPV (7.4 - 10.4 FL) 8.0 Gran % (42.2 - 75.2 %) 82.9 H Lymphocytes % (20.5 - 51.1 %) 10.7 L Monocytes % (1.7 - 9.3 %) 6.0 Eosinophils % (0 - 5 %) 0.1 Basophils % (0.0 - 2.0 %) 0.3 Absolute Granulocytes (1.4 - 6.5 /CUMM) 8.3 H Absolute Lymphocytes (1.2 - 3.4 /CUMM) 1.1 L Absolute Monocytes (0.10 - 0.60 /CUMM) 0.6 Absolute Eosinophils (0.0 - 0.7 /CUMM) 0 Absolute Basophils (0.0 - 0.2 /CUMM) 0 Serology HIV 1&2 Ab Western Blot (NONREACTIVE) Pending Last 24 Hours of [place] Results: No cultures obtained Diagnostic Data Recent Imaging Findings: Chest x-ray reveals diffuse bilateral interstitial opacities. X-ray of the lumbosacral spine revealed bilateral L5 pars defect with grade 1 anterolisthesis of L5 on S1. MRI of the lumbosacral spine revealed findings most compatible with osteomyelitis/discitis at L5-S1, with an adjacent epidural phlegmon. Assessment/Plan Assessment/Plan Impression: This is a 31-year-old male with no significant past medical history hospitalized at [facility] 2 months prior to admission with left calf pain, which resolved after 2 days of IV antibiotics, admitted today with a 2 week history of severe low back pain, radiating down the left leg, found to be afebrile with a normal white blood cell count and a microcytic anemia, status post a normal upper endoscopy earlier today, with a chest x-ray revealing diffuse bilateral interstitial opacities and an MRI of the lumbosacral spine revealing findings most compatible with a discitis/osteomyelitis at L5-S1, with an adjacent epidural phlegmon. The etiology of his discitis/osteomyelitis is unclear. He is afebrile and his white blood cell count is normal, but a bacterial infection would still be the most likely etiology. He has no obvious focus of infection elsewhere, from where he could have seeded the spine, and the recent left calf pain, which reportedly responded to 2 days of IV antibiotics, remains unexplained. He does report cutting his left great toenail to the point of bleeding, which could theoretically have been a source of infection, though he does not report any inflammation in this area. He will require an aspiration/biopsy of the disc, which is scheduled for tomorrow. The epidural phlegmon is of some concern but he has no neurologic deficit; therefore he should not require any surgical intervention at this time. His microcytic anemia is of unclear etiology and will need to rule out thalassemia trait as he is of [place] descent. His interstitial opacities on chest x-ray may suggest an interstitial pneumonitis, possibly related to exposure while he was in [place] over 10 years prior to admission. Suggestion: 1. Blood cultures 2 2. Await L5-S1 disc aspiration/biopsy in the a.m., with a specimen submitted to Micro for routine, AFB and fungal cultures and a specimen to cytology 3. Consider Neurosurgical evaluation 4. Obtain records from his recent hospitalization at [facility] and any old blood work to rule out thalassemia trait 5. Pulmonary evaluation at some point (can be as an outpatient) 6. Continue to follow off antibiotics pending above Consult Acknowledgment - Thank you for your consult request.
[2017-10-25] MEDS ORDERED: AMBIEN10 M1 PO (17:22)
[2017-10-25 17:25] VITALS: BP 112/52
--- NOTE | 2017-10-25 17:42 | Cons- Neurosurgical ---
General Information and HPI Consulting Request Date of Consult: 10/25/17 Requested By: Parminder Hernandez MD Reason for Consult: back pain, L5-S1 discitis and possible epidural abscess Source of Information: patient Exam Limitations: no limitations History of Present Illness: This is a 31-year-old male with a history of asthma, presents with 2 weeks of severe low back pain, radiating down the left leg, seen in the emergency room at [facility] 5 days prior to admission and discharged on Ibuprofen, Flexeril and Percocet. He returned to the ED today with persistent back pain, radiating down the left leg still. He denies trauma, Denies IV drug use. He denies fevers. Denies loss of bladder or bowel control. Denies parestheias. Has pain with ambulation in left lower extremity. Denies CP/COB. Deneis [place] and neck ache. WBC-9.7 and Hematocrit is 22.4 X-ray of the lumbosacral spine revealed bilateral L5 pars defect with grade 1 anterolisthesis of L5 on S1. An MRI of the lumbosacral spine revealed findings most compatible with osteomyelitis/ discitis at L5-S1, with an adjacent epidural phlegmon. He was evaluated by GI and underwent an upper endoscopy, which was normal. Allergies/Medications Allergies: Coded Allergies: No Known Drug Allergies (NKDA 10/20/17) Home Med List: Cyclobenzaprine HCl 10 MG TABLET 1 TAB PO TID PRN MUSCLE SPASM Ibuprofen 800 MG TABLET 1 TAB PO TID PRN pain Oxycodone HCl/Acetaminophen (Percocet 5-325 MG Tablet) 5 MG-325 MG TABLET 1 TAB PO 4XDP PRN PAIN TEN...[id number] Zolpidem Tartrate (Ambien) 10 MG TABLET 1 TAB PO QPMP PRN SLEEP (Reported) Current Medications: Current Medications Sig/Sue Start time Last Medication Dose Route Stop Time Status Admin Chlorhexidine 1 GM .STK-MED ONE 10/25 1149 DC Gluconate TOP 10/25 1150 Diazepam 2 MG 4 TIMES/DAY PRN 10/25 1315 AC 10/25 PO 1656 Enoxaparin Sodium 40 MG DAILY 10/25 1041 DC SC Ergocalciferol 50,000 IU QTHURS 10/25 1315 AC 10/25 PO 12/06 0901 1659 Ferrous Sulfate 325 MG TID 10/25 1400 AC 10/25 PO 1400 Ibuprofen 600 MG Q6 10/25 1200 DC 10/25 PO 1127 Ketorolac 0 .STK-MED ONE 10/25 0601 DC Tromethamine .ROUTE Ketorolac 30 MG ONCE ONE 10/25 0600 DC 10/25 Tromethamine IV 10/25 0601 0606 Lorazepam 0 .STK-MED ONE 10/25 0602 DC .ROUTE Lorazepam 1 MG ONCE ONE 10/25 0600 DC 10/25 IV 10/25 0601 0606 Morphine Sulfate 2 MG Q4-6 PRN PRN 10/25 1630 AC 10/25 IV 1652 Morphine Sulfate 2 MG Q6P PRN 10/25 1400 DC 10/25 IV 1510 Morphine Sulfate 0 .STK-MED ONE 10/25 0722 DC .ROUTE Morphine Sulfate 4 MG ONCE ONE 10/25 0715 DC 10/25 IV 10/25 0716 0721 Oxycodone/ 2 TAB Q6P PRN 10/25 1415 AC Acetaminophen PO Oxycodone/ 1 TAB ONCE ONE 10/25 1400 DC 10/25 Acetaminophen PO 10/25 1401 1412 Oxycodone/ 1 TAB Q6P PRN 10/25 1300 DC 10/25 Acetaminophen PO 1316 Pantoprazole Sodium 0 .STK-MED ONE 10/25 0920 DC IV Pantoprazole Sodium 40 MG ONCE ONE 10/25 0900 DC 10/25 IV 10/25 0901 0916 Polyethylene Glycol 17 GM DAILY 10/26 0900 AC PO Zolpidem Tartrate 10 MG AT BEDTIME NEED.. 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 Home Who Do You Live With? [facility] Services at Home: None Primary Language: Tongan Smoking Status: Current Some Day Smoker ETOH Use: occasional use Illicit Drug Use: marijuana Living Will? unknown Functional Ability ADLs Independent: dressing, eating, toileting, bathing. 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 Review of Systems Review of Systems: as per HPI Exam & Diagnostic Data Vital Signs and I&O Vital Signs Date Time Temp Pulse Resp B/P B/P Pulse O2 O2 Flow FiO2 Mean Ox Delivery Rate 10/25 1443 98.5 68 20 110/75 97 Room Air 10/25 1137 98.2 103 22 110/70 97 Room Air 10/25 0750 97.2 104 18 127/57 99 Room Air 10/25 0534 Room Air 10/25 0530 97.1 108 20 119/51 99 Room Air Intake & Output 10/25 0810/25 0000 10/24 0810/24 0000 Intake Total 0 Output Total 300 Balance -300 0 Intake, Oral 0 Output, Urine 300 Patient 188 lb 170 lb Weight Weight Bed scale Reported by Patient Measurement Method Physical Exam: gen- NAD HEENT- MMM, EOMI, nares patent neck- supple, C-spine nontender resp- clear\ cariac- RRR abd- ND, soft, +BS, NT back- tender over lumbar spine and sacrum, No swelling or erythema noted ext- pain with left lef extension and ambulation. distal sensory and motor function intact. 2+ PT pulse bilaterally Last 24 Hours of Labs: Laboratory Tests 10/25 10/25 10/25 1405 1310 1305 Coagulation PT (9.4 - 12.5 SEC) 16.3 H INR (0.90 - 1.17) 1.49 H APTT (25 - 37 SEC) 29 Hematology ESR Westergren (0 - 10 MM) 121 H Toxicology Urine Opiates Screen (>2000 NG/ML) 2619.00 H Methadone Screen (>300 NG/ML) 48 Barbiturate Screen (>200 NG/ML) < 60 Ur Phencyclidine Scrn (>25 NG/ML) < 6.00 Amphetamines Screen (>1000 NG/ML) < 100 U Benzodiazepines Scrn (>200 NG/ML) < 85 Urine Cocaine Screen (>300 NG/ML) 253 Urine Cannabis Screen (>50 NG/ML) > 80.00 H Urines Urine Color (YEL,AMB,STR) YEL Urine Clarity (CLEAR) CLEAR Urine pH (5.0 - 8.0) 6.0 Ur Specific [place] (1.001 - 1.035) 1.010 Urine Protein (NEG,<30 MG/DL) NEG Urine Ketones (NEG) NEG Urine Nitrite (NEG) NEG Urine Bilirubin (NEG) NEG Urine Urobilinogen (0.1 - 1.0 EU/dl) 0.2 Ur Leukocyte Esterase (NEG) NEG Ur Microscopic EXAM NOT REQUIRED Urine Hemoglobin (NEG) NEG Urine Glucose (N MG/DL) NEG 10/25 10/25 1042 0721 Chemistry C-Reactive Prot, Quant Cancelled Hematology CBC w Diff MAN DIFF ORDERED WBC (4.8 - 10.8 /CUMM) 9.7 RBC (4.70 - 6.10 /CUMM) 3.03 L Hgb (14.0 - 18.0 G/DL) 7.3 *L Hct (42 - 52 %) 22.4 L MCV (80.0 - 94.0 FL) 73.9 L MCH (27.0 - 31.0 PG) 24.0 L MCHC (33.0 - 37.0 G/DL) 32.4 L RDW (11.5 - 14.5 %) 16.6 H Plt Count (130 - 400 /CUMM) 477 H MPV (7.4 - 10.4 FL) 7.7 Gran % (42.2 - 75.2 %) 82.2 H Lymphocytes % (20.5 - 51.1 %) 11.7 L Monocytes % (1.7 - 9.3 %) 5.7 Eosinophils % (0 - 5 %) 0.1 Basophils % (0.0 - 2.0 %) 0.3 Absolute Granulocytes (1.4 - 6.5 /CUMM) 8.0 H Absolute Lymphocytes (1.2 - 3.4 /CUMM) 1.1 L Absolute Monocytes (0.10 - 0.60 /CUMM) 0.6 Absolute Eosinophils (0.0 - 0.7 /CUMM) 0 Absolute Basophils (0.0 - 0.2 /CUMM) 0 Platelet Estimate (ADEQUATE) INCREASED Polychromasia 1+ Hypochromic-Microcytic 2+ Poikilocytosis 2+ Anisocytosis 2+ Microcytic Cells 2+ Ovalocytes 1+ Schistocytes Retic Count (0.5 - 2.0 %) 4.37 H 10/25 0600 Chemistry Sodium (137 - 145 mmol/L) 139 Potassium (3.5 - 5.1 mmol/L) 3.6 Chloride (98 - 107 mmol/L) 104 Carbon Dioxide (22 - 30 mmol/L) 24 Anion Gap (5 - 16) 11 BUN (9 - 20 mg/dL) 13 Creatinine (0.7 - 1.2 mg/dL) 0.6 L Estimated GFR (>60 ml/min) > 60 BUN/Creatinine Ratio (7 - 25 %) 21.7 Glucose (65 - 99 mg/dL) 104 H Calcium (8.4 - 10.2 mg/dL) 8.3 L Magnesium (1.6 - 2.3 mg/dL) 1.8 Iron (49 - 181 ug/dL) 30 L TIBC (261 - 462 ug/dL) 231 L Ferritin (17.9 - 464 ng/mL) 414.0 Total Bilirubin (0.2 - 1.3 mg/dL) 1.1 AST (17 - 59 U/L) 25 ALT (21 - 72 U/L) 42 Alkaline Phosphatase (< 127 U/L) 142 H C-Reactive Prot, Quant (<1.0 mg/dL) > 9.0 H Total Protein (6.3 - 8.2 g/dL) 5.9 L Albumin (3.5 - 5.0 g/dL) 2.9 L Globulin (1.9 - 4.2 gm/dL) 3.0 Albumin/Globulin Ratio (1.1 - 2.2 %) 1.0 L Vitamin B12 (239 - 931 pg/mL) 415 25-OH Vitamin D Total (30 - 100 ng/ml) 7.9 L Folate (2.76 - 20.0 ng/mL) 8.3 Hematology CBC w Diff NO MAN DIFF REQ WBC (4.8 - 10.8 /CUMM) 10.0 RBC (4.70 - 6.10 /CUMM) 3.00 L Hgb (14.0 - 18.0 G/DL) 7.2 *L Hct (42 - 52 %) 22.2 L MCV (80.0 - 94.0 FL) 73.9 L MCH (27.0 - 31.0 PG) 24.0 L MCHC (33.0 - 37.0 G/DL) 32.5 L RDW (11.5 - 14.5 %) 16.6 H Plt Count (130 - 400 /CUMM) 458 H MPV (7.4 - 10.4 FL) 8.0 Gran % (42.2 - 75.2 %) 82.9 H Lymphocytes % (20.5 - 51.1 %) 10.7 L Monocytes % (1.7 - 9.3 %) 6.0 Eosinophils % (0 - 5 %) 0.1 Basophils % (0.0 - 2.0 %) 0.3 Absolute Granulocytes (1.4 - 6.5 /CUMM) 8.3 H Absolute Lymphocytes (1.2 - 3.4 /CUMM) 1.1 L Absolute Monocytes (0.10 - 0.60 /CUMM) 0.6 Absolute Eosinophils (0.0 - 0.7 /CUMM) 0 Absolute Basophils (0.0 - 0.2 /CUMM) 0 Serology HIV 1&2 Ab Western Blot (NONREACTIVE) NONREACTIVE Imaging Results: EXAM TYPE: MRI - MRI-LUMBAR SPINE MR LUMBAR SPINE WITHOUT CONTRAST CLINICAL INFORMATION: Lower back pain with x-ray positive for grade 1 anterolisthesis of L5 on S1 and L5 pars defects. COMPARISON: Lumbar spine radiographs performed earlier the same day. TECHNIQUE: MRI of the lumbar spine without contrast was obtained using routine sequences. FINDINGS: There is abnormal signal throughout the L5-S1 disc and there are T2 signal changes involving the opposing L5 and S1 endplates. There is increased signal on T2-weighted imaging within the paravertebral soft tissues at L5-S1 with these findings in constellation most concerning for the presence of osteomyelitis discitis. There is soft tissue effacement of the ventral epidural space at L5-S1, most likely ventral epidural phlegmon. Postcontrast imaging could be obtained to assess for any discrete abscesses. As noted on the recent plain films there are bilateral L5 pars defects and there is grade 1 spondylolytic anterolisthesis of L5 on S1. There is no additional bone marrow edema. No acute fractures are appreciated. There is decreased marrow signal throughout the imaged spinal elements and bony pelvis. I confirmed with the referring clinician that this patient has underlying anemia and the low marrow signal is most likely attributable to anemia. Marrow replacement processes could appear similar. The conus terminates at the L1-L2 disc level. The partially imaged bladder is significantly distended. The L1-L2, L2-L3, and L3-L4 disc contours are normal. There is no central canal stenosis and there is no foraminal stenosis at these levels. L4-L5: There is a diffuse annular disc bulge and there is mild to moderate bilateral hypertrophic facet arthropathy. No central canal stenosis. Mild foraminal narrowing bilaterally. L5-S1: Grade 1 spondylolytic anterolisthesis in the setting of bilateral L5 pars defects. Uncovered disc with a superimposed diffuse annular bulge. Epidural phlegmon contacts the traversing S1 nerve roots within the subarticular zones bilaterally. Severe bilateral foraminal stenosis with compression of the exiting L5 nerve roots bilaterally, greater on the left side. IMPRESSION: - Imaging findings are most compatible with osteomyelitis discitis at L5-S1 with adjacent epidural phlegmon resulting in mild narrowing of the central canal and partial effacement of the subarticular zones bilaterally, contacting the traversing S1 nerve roots bilaterally. Postcontrast imaging could be obtained to assess for any discrete abscesses. - As noted on the recent plain films there are bilateral L5 pars defects and there is grade 1 spondylolytic anterolisthesis of L5 on S1 with listhesis, uncovered disc, and degenerative changes resulting in severe bilateral foraminal stenosis at L5-S1 with compression of the exiting L5 nerve roots bilaterally, greater on the left side. - There is decreased marrow signal throughout the imaged spinal elements and bony pelvis. I confirmed with the referring clinician that this patient has underlying anemia and the low marrow signal is most likely attributable to anemia. Marrow replacement processes could appear similar. - The partially imaged bladder is significantly distended. These findings were discussed with Dr. Myers at 1:20 PM on 10/25/2017. DICTATED BY: Sixto Roberson MD DATE/TIME DICTATED:10/25/171310 [employer]D [employer]URITY ARCHITECT:TORI DATE/TIME TRANSCRIBED:10/25/171310 Assessment/Plan Assessment/Plan 31yo M with L5-S1 discitis and question on epidural abscess. No cauda equina. Continue medical management. Awaiting culture results. CT-guided biopsy scheduled for tomorrow. No need for surgical intervention at this time. Recommend: -alagesics -antibiotics -TLSO Brace THis was discussed with Dr. Vela and he agrees with the above. Consult Acknowledgment - Thank you for your consult request.
[2017-10-25 20:30] VITALS: BP 110/48
[2017-10-25 21:43] LABS: ABSOLUTE BASOPHIL COUNT 0 /CUMM (0.0-0.2); ABSOLUTE EOSINOPHIL COUNT 0.1 /CUMM (0.0-0.7); ABSOLUTE GRANULOCYTE CT 6.2 /CUMM (1.4-6.5); ABSOLUTE LYMPH COUNT 1.2 /CUMM (1.2-3.4); ABSOLUTE MONOCYTE COUNT 0.5 /CUMM (0.10-0.60); BASOPHIL % 0.3 % (0.0-2.0); GRANULOCYTE % 77.3 % (42.2-75.2); MEAN CORPUSCULAR HGB 24.6 PG (27.0-31.0); MEAN CORPUSCULAR HGB CONC 32.6 G/DL (33.0-37.0); MEAN CORPUSCULAR VOLUME 75.4 FL (80.0-94.0); MEAN PLATELET VOLUME 7.5 FL (7.4-10.4); PLATELET COUNT 435 /CUMM (130-400); RBC DISTRIBUTION WIDTH 17.6 % (11.5-14.5); RED BLOOD CELL CT 3.31 /CUMM (4.70-6.10); WHITE BLOOD CELL COUNT 8.1 /CUMM (4.8-10.8)
--- NOTE | 2017-10-25 21:51 | RADIOLOGY REPORT ---
EXAMINATION: XR PORTABLE CHEST CLINICAL INFORMATION: Post transfusion tachycardia and tachypnea. No fever COMPARISON: 10/25/2017 TECHNIQUE: Portable frontal view of the chest was obtained. FINDINGS: Lung volumes are decreased from the prior study. Pulmonary vascularity is increasingly prominent and indistinct. No focal consolidation or mass. No pleural effusion or pneumothorax. The cardiac silhouette is enlarged. IMPRESSION: Increasingly prominent and indistinct pulmonary interstitium, suggesting interstitial pulmonary edema. Bronchitis or interstitial pneumonitis is possible but considered less likely. The cardiac silhouette appears enlarged which could be due to cardiomegaly and/or pericardial effusion.
--- NOTE | 2017-10-25 23:13 | Admission Certification ---
Admission Certification Certification Statement - As attending physician, I certify that at the time of - admission, based on clinical presentation, severity of - symptoms, need for further diagnostic testing and - therapeutic interventions, and risk of adverse outcomes - without in-hospital treatment, in my clinical assessment, - this patient requires an acute hospital stay for a minimum - of two nights or longer. I have also considered psychsocial - factors such as support system, advanced age, financial - issues, cognitive issues, and failed out-patient treatments, - past re-admission history, safety of patient, and lack of - compliance as applicable. Specific rationale supporting this admission is: The patient presents with intractable back pain, probable osteomyelitis/discitis L5-S1 with epidural involvement, severe anemia requiring transfusion. Needs admission for biopsy/culture of spine, transfusion, ID, Neurosurgical, Hematology, GI consults.
[2017-10-26 00:35] VITALS: BP 110/38
--- NOTE | 2017-10-26 01:43 | Event Note ---
Event Note Event Note: S: Around 2029, nurse notified us regarding patient's critical vitals signs including tachycardia above 100, and tachypnea around 30s, however no temperature, no O2 saturation deficit, and patient had no specific complaints and denied chest pain. Stat CBCs, troponin, EKG, d-dimer was sent and revealed hemoglobin above 8, troponin 0.05, d-dimer positive at 772, an EKG was normal sinus rhythm however with V1-6 T-wave inversion. A chest x-ray was conducted which showed possible interstitial pulmonary edema, taking to consideration of patient's daytime transfusion, 40 mg Lasix p.o. was given in front of fluid overload from blood transfusion. Around 2019, nurse recorded another set of critical vital signs including tachycardia above 100, and tachypnea around 40s, however still has no temperature, or any O2 saturation deficit. Patient had no complaints, and attributed tachypnea to the pain elicited by him moving around in bed. He still denies any chest paiin. B: Patient is a 31-year-old male very poor historian with past medical history of asthma presented with chief complaint of low back pain for several weeks, which is now status post CT-guided biopsy for L5-S1, and transfusing to keep hemoglobin above 7, with a baseline anemia of unclear etiology. AR: In consideration of patient's repeated tachycardia/tachypnea/suspicion for PE, patient should be transferred to telemetry for close continuous monitoring of the heart. room air. update: -EKG/trop x 2 appeared similar without acute changes -PE ruled out by CTA -Patient been tachycardiac around 100s however denied any chest pain or any discomfort, with improved pain around 10/02. -Will seek for Echo in the AM.
--- NOTE | 2017-10-26 02:11 | CT SCAN REPORT ---
EXAMINATION: CT ANGIOGRAM OF THE CHEST WITH AND WITHOUT CONTRAST (CT PULMONARY ANGIOGRAM FOR PE) CLINICAL INFORMATION: Tachypnea, tachycardia after a blood transfusion COMPARISON: Chest x-ray 10/25/2017 TECHNIQUE: Prior to contrast administration, noncontrast localization images were obtained. Subsequently, multidetector volumetric imaging was performed from the thoracic inlet to below the diaphragms following the administration of 80 mL Optiray 320 intravenous contrast. No contrast reaction reported. Sagittal, coronal, and MIP oblique sagittal reformatted images were obtained on the CT workstation, uploaded to PACS, and reviewed. Total exam dose-length product 433.72 mGy-cm. FINDINGS: QUALITY OF STUDY/CONTRAST BOLUS: Satisfactory PULMONARY ARTERIES: No central or proximal segmental pulmonary emboli. Assessment of the more distal vasculature is limited due to respiratory motion artifact. THORACIC AORTA: No aneurysm or dissection. LUNG: Detailed assessment is limited in some regions due to respiratory motion artifact. There is peripheral interlobular septal thickening suspicious for interstitial edema. There are associated multifocal patchy regions of groundglass opacification bilaterally, suspicious for mild alveolar edema in this setting. Atelectasis is seen in the dependent portions of the bilateral lower lobes. PLEURA: Small bilateral pleural effusions are present. No pneumothorax. MEDIASTINUM: The visualized thyroid gland is unremarkable. There is suggestion of mild subcarinal lymphadenopathy which may be reactive.. There are mildly prominent bilateral hilar lymph nodes. Cardiac size is within normal limits; no pericardial effusion. No evidence of septal bowing or right heart strain. CHEST WALL/AXILLA: No axillary or internal mammary lymphadenopathy. OSSEOUS STRUCTURES: No acute or suspicious osseous abnormality. UPPER ABDOMEN: Unremarkable. No reflux of contrast into the hepatic veins to suggest elevated right heart pressures. IMPRESSION: 1. No evidence of central pulmonary embolus. Assessment of the distal vasculature is limited due to respiratory motion artifact. 2. Pulmonary findings compatible with interstitial and mild alveolar edema. Given the history of recent blood transfusion, this may reflect sequelae of transfusion related acute lung injury. 3. Small pleural effusions. 4. Mildly prominent mediastinal/hilar lymph nodes, which may be reactive in the setting of edema. VTE: negative
[2017-10-26 07:03] VITALS: BP 116/62
--- NOTE | 2017-10-26 08:02 | Cons- Hematology ---
General Information and HPI Consulting Request Date of Consult: 10/26/17 Requested By: Parminder Hernandez MD Reason for Consult: microcytic anemia Source of Information: patient Exam Limitations: poor historian History of Present Illness: Mr. Peralta is a 31-year-old male with asthma who presented with back pain. Pain radiates to the left leg. Pain has been ongoing for about 1 month now per the patient. He has been to a few hospitals for left leg symptoms including left calf pain. He has been to [facility]. He denies going to any other hospital on interview. He denies any fever or chills. He denies any nausea or vomiting. He does have sweating. He denies any weight loss. He denies any bowel or bladder incontinence. He denies any bleeding issues. He denies any bruising. He has not been ill recently. He has not had any other pain. He denies any drug usage except for occasional marijuana usage. He states he drinks alcohol rarely. On admission, he was noted to have a WBC of 10,000, hemoglobin of 7.2, hematocrit of 22.2%, and MCV of 73.9. Platelet count was slightly elevated at 458. Stoopl guaiac was negative. Creatinine was normal at 0.6. CRP was elevated aong with ESR. INR was 1.49. MRI spine was compatible with osteomyelitis/ discitis at L5-S1 with an adjacent epidural phlegmon. There was decreased marrow signal. Drug screen was positive for cannabis. Cocaine was negative but detectable at 253. Opiates was positive. He was seen by GI and had EGD done. This was negative. Ferritin was 414. Serum iron was 30 with TIBC of 231. Vitamin B12 and folate was normal. Reticulocyte count is elevated. He was given 1 unit of pRBC. He feels a but the same today. He did have some tachycardia after transfusion yesterday. Allergies/Medications Allergies: Coded Allergies: No Known Drug Allergies (NKDA 10/20/17) Home Med List: Cyclobenzaprine HCl 10 MG TABLET 1 TAB PO TID PRN MUSCLE SPASM Ibuprofen 800 MG TABLET 1 TAB PO TID PRN pain Oxycodone HCl/Acetaminophen (Percocet 5-325 MG Tablet) 5 MG-325 MG TABLET 1 TAB PO 4XDP PRN PAIN TEN...[id number] Zolpidem Tartrate (Ambien) 10 MG TABLET 1 TAB PO QPMP PRN SLEEP (Reported) Current Medications: Current Medications Sig/Sue Start time Last Medication Dose Route Stop Time Status Admin Acetaminophen 1,000 MG ONCE ONE 10/26 0415 DC 10/26 N/A 1 UNIT IV 10/26 428 0418 Chlorhexidine 1 GM .STK-MED ONE 10/25 1149 DC Gluconate TOP 10/25 1150 Diazepam 2 MG 4 TIMES/DAY PRN 10/25 1315 AC 10/26 PO 0631 Enoxaparin Sodium 40 MG DAILY 10/25 1041 DC SC Ergocalciferol 50,000 IU QTHURS 10/25 1315 AC 10/25 PO 12/06 0901 1659 Ferrous Sulfate 325 MG TID 10/25 1400 AC 10/25 PO 2106 Furosemide 20 MG ONCE ONE 10/25 2345 DC 10/26 PO 10/25 2346 0028 Ibuprofen 600 MG Q6 10/25 1200 DC 10/25 PO 1127 Lidocaine 1 PAT DAILY PRN 10/26 0415 AC 10/26 EXT 0426 Morphine Sulfate 2 MG Q4-6 PRN PRN 10/25 1630 AC 10/26 IV 0623 Morphine Sulfate 2 MG Q6P PRN 10/25 1400 DC 10/25 IV 1510 Nicotine 14 MG DAILY 10/25 1957 AC 10/26 TOP 0028 Oxycodone/ 2 TAB Q6P PRN 10/25 1415 AC 10/26 Acetaminophen PO 0028 Oxycodone/ 1 TAB ONCE ONE 10/25 1400 DC 10/25 Acetaminophen PO 10/25 1401 1412 Oxycodone/ 1 TAB Q6P PRN 10/25 1300 DC 10/25 Acetaminophen PO 1316 Pantoprazole Sodium 0 .STK-MED ONE 10/25 0920 DC IV Pantoprazole Sodium 40 MG ONCE ONE 10/25 0900 DC 10/25 IV 10/25 0901 0916 Polyethylene Glycol 17 GM DAILY 10/26 0900 PO Zolpidem Tartrate 10 MG AT BEDTIME NEED.. 10/25 1730 AC 10/25 PO 2315 Review of Systems Review of Systems Constitutional: Reports: weakness. Denies: chills, fever. EENTM: Denies: double vision, visual changes. Cardiovascular: Denies: chest pain. Respiratory: Denies: short of breath. GI: Denies: abdominal pain. Genitourinary: Denies: discharge. Musculoskeletal: Reports: back pain. Neurological/Psychological: Denies: confusion. Hematologic/Endocrine: Denies: bruising, bleeding. Immunologic/Allergic: Denies: HIV/AIDS, lymphadenopathy. 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 Home Who Do You Live With? [facility] Services at Home: None Primary Language: Mongolian Smoking Status: Current Some Day Smoker ETOH Use: occasional use Illicit Drug Use: marijuana Living Will? unknown Functional Ability ADLs Independent: dressing, eating, toileting, bathing. 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 Exam & Diagnostic Data Vital Signs and I&O Vital Signs Date Time Temp Pulse Resp B/P B/P Pulse O2 O2 Flow FiO2 Mean Ox Delivery Rate 10/26 0703 98.1 106 30 116/62 94 Room Air 05/ 0035 99.9 80 40 110/38 94 Room Air / 0000 97 Room Air / 2030 98.7 100 30 110/48 95 Room Air 05/03 1725 98.7 89 22 112/52 05/03 1443 98.5 68 20 110/75 97 Room Air 05/ 1137 98.2 103 22 110/70 97 Room Air 05/ 0750 97.2 104 18 127/57 99 Room Air Intake & Output 10/26 0800 05/04 0000 05/03 1600 Intake Total 250 Output Total 300 450 300 Balance -50 -450 -300 Intake, IV 150 Intake, Oral 100 Output, Urine 300 450 300 Patient 85.275 kg Weight Weight Bed scale Measurement Method Physical Exam General Appearance: well developed/nourished, no apparent distress, alert, awake , comfortable, sweating Head: atraumatic, normal appearance Eyes: Bilateral: PERRL, EOMI. Ears, Nose, Throat: normal pharynx Neck: normal inspection, supple Respiratory: normal breath sounds, chest non-tender, no respiratory distress Cardiovascular: regular rate/rhythm Gastrointestinal: normal bowel sounds, soft, non-tender, no organomegaly Back: vertebral tenderness Extremities: normal inspection, no edema Neurologic/Psych: no motor/sensory deficits, awake, alert, oriented x 3 Cranial Nerves: normal speech Skin: intact, normal color, warm/dry Lymphatic: no anterior cervical miracle Last 48 Hours of Lab Results: Laboratory Tests 10/26 10/26 10/25 0055 0049 2207 Chemistry Troponin I (<0.11 ng/ml) 0.06 Cancelled Coagulation D-Dimer High Sensitivty (0 - 243 ng/ml) 772 H 10/25 10/25 10/25 2133 1405 1310 Chemistry Troponin I (<0.11 ng/ml) 0.05 Coagulation PT (9.4 - 12.5 SEC) 16.3 H INR (0.90 - 1.17) 1.49 H APTT (25 - 37 SEC) 29 Hematology CBC w Diff NO MAN DIFF REQ WBC (4.8 - 10.8 /CUMM) 8.1 RBC (4.70 - 6.10 /CUMM) 3.31 L Hgb (14.0 - 18.0 G/DL) 8.1 L Hct (42 - 52 %) 25.0 L MCV (80.0 - 94.0 FL) 75.4 L MCH (27.0 - 31.0 PG) 24.6 L MCHC (33.0 - 37.0 G/DL) 32.6 L RDW (11.5 - 14.5 %) 17.6 H Plt Count (130 - 400 /CUMM) 435 H MPV (7.4 - 10.4 FL) 7.5 Gran % (42.2 - 75.2 %) 77.3 H Lymphocytes % (20.5 - 51.1 %) 15.3 L Monocytes % (1.7 - 9.3 %) 6.1 Eosinophils % (0 - 5 %) 1.0 Basophils % (0.0 - 2.0 %) 0.3 Absolute Granulocytes (1.4 - 6.5 /CUMM) 6.2 Absolute Lymphocytes (1.2 - 3.4 /CUMM) 1.2 Absolute Monocytes (0.10 - 0.60 /CUMM) 0.5 Absolute Eosinophils (0.0 - 0.7 /CUMM) 0.1 Absolute Basophils (0.0 - 0.2 /CUMM) 0 ESR Westergren (0 - 10 MM) 121 H 10/25 10/25 1305 1042 Chemistry C-Reactive Prot, Quant Cancelled Toxicology Urine Opiates Screen (>2000 NG/ML) 2619.00 H Methadone Screen (>300 NG/ML) 48 Barbiturate Screen (>200 NG/ML) < 60 Ur Phencyclidine Scrn (>25 NG/ML) < 6.00 Amphetamines Screen (>1000 NG/ML) < 100 U Benzodiazepines Scrn (>200 NG/ML) < 85 Urine Cocaine Screen (>300 NG/ML) 253 Urine Cannabis Screen (>50 NG/ML) > 80.00 H Urines Urine Color (YEL,AMB,STR) YEL Urine Clarity (CLEAR) CLEAR Urine pH (5.0 - 8.0) 6.0 Ur Specific [place] (1.001 - 1.035) 1.010 Urine Protein (NEG,<30 MG/DL) NEG Urine Ketones (NEG) NEG Urine Nitrite (NEG) NEG Urine Bilirubin (NEG) NEG Urine Urobilinogen (0.1 - 1.0 EU/dl) 0.2 Ur Leukocyte Esterase (NEG) NEG Ur Microscopic EXAM NOT REQUIRED Urine Hemoglobin (NEG) NEG Urine Glucose (N MG/DL) NEG 10/25 10/25 0721 0600 Chemistry Sodium (137 - 145 mmol/L) 139 Potassium (3.5 - 5.1 mmol/L) 3.6 Chloride (98 - 107 mmol/L) 104 Carbon Dioxide (22 - 30 mmol/L) 24 Anion Gap (5 - 16) 11 BUN (9 - 20 mg/dL) 13 Creatinine (0.7 - 1.2 mg/dL) 0.6 L Estimated GFR (>60 ml/min) > 60 BUN/Creatinine Ratio (7 - 25 %) 21.7 Glucose (65 - 99 mg/dL) 104 H Calcium (8.4 - 10.2 mg/dL) 8.3 L Magnesium (1.6 - 2.3 mg/dL) 1.8 Iron (49 - 181 ug/dL) 30 L TIBC (261 - 462 ug/dL) 231 L Ferritin (17.9 - 464 ng/mL) 414.0 Total Bilirubin (0.2 - 1.3 mg/dL) 1.1 AST (17 - 59 U/L) 25 ALT (21 - 72 U/L) 42 Alkaline Phosphatase (< 127 U/L) 142 H C-Reactive Prot, Quant (<1.0 mg/dL) > 9.0 H Total Protein (6.3 - 8.2 g/dL) 5.9 L Albumin (3.5 - 5.0 g/dL) 2.9 L Globulin (1.9 - 4.2 gm/dL) 3.0 Albumin/Globulin Ratio (1.1 - 2.2 %) 1.0 L Vitamin B12 (239 - 931 pg/mL) 415 25-OH Vitamin D Total (30 - 100 ng/ml) 7.9 L Folate (2.76 - 20.0 ng/mL) 8.3 Hematology CBC w Diff MAN DIFF ORDERED NO MAN DIFF REQ WBC (4.8 - 10.8 /CUMM) 9.7 10.0 RBC (4.70 - 6.10 /CUMM) 3.03 L 3.00 L Hgb (14.0 - 18.0 G/DL) 7.3 *L 7.2 *L Hct (42 - 52 %) 22.4 L 22.2 L MCV (80.0 - 94.0 FL) 73.9 L 73.9 L MCH (27.0 - 31.0 PG) 24.0 L 24.0 L MCHC (33.0 - 37.0 G/DL) 32.4 L 32.5 L RDW (11.5 - 14.5 %) 16.6 H 16.6 H Plt Count (130 - 400 /CUMM) 477 H 458 H MPV (7.4 - 10.4 FL) 7.7 8.0 Gran % (42.2 - 75.2 %) 82.2 H 82.9 H Lymphocytes % (20.5 - 51.1 %) 11.7 L 10.7 L Monocytes % (1.7 - 9.3 %) 5.7 6.0 Eosinophils % (0 - 5 %) 0.1 0.1 Basophils % (0.0 - 2.0 %) 0.3 0.3 Absolute Granulocytes (1.4 - 6.5 /CUMM) 8.0 H 8.3 H Absolute Lymphocytes (1.2 - 3.4 /CUMM) 1.1 L 1.1 L Absolute Monocytes (0.10 - 0.60 /CUMM) 0.6 0.6 Absolute Eosinophils (0.0 - 0.7 /CUMM) 0 0 Absolute Basophils (0.0 - 0.2 /CUMM) 0 0 Platelet Estimate (ADEQUATE) INCREASED Polychromasia 1+ Hypochromic-Microcytic 2+ Poikilocytosis 2+ Anisocytosis 2+ Microcytic Cells 2+ Ovalocytes 1+ Schistocytes Retic Count (0.5 - 2.0 %) 4.37 H Serology HIV 1&2 Ab Western Blot (NONREACTIVE) NONREACTIVE Imaging/Other Studies: Lumbar MRI 10/25/2017: - Imaging findings are most compatible with osteomyelitis discitis at L5-S1 with adjacent epidural phlegmon resulting in mild narrowing of the central canal and partial effacement of the subarticular zones bilaterally, contacting the traversing S1 nerve roots bilaterally. Postcontrast imaging could be obtained to assess for any discrete abscesses. - As noted on the recent plain films there are bilateral L5 pars defects and there is grade 1 spondylolytic anterolisthesis of L5 on S1 with listhesis, uncovered disc, and degenerative changes resulting in severe bilateral foraminal stenosis at L5-S1 with compression of the exiting L5 nerve roots bilaterally, greater on the left side. - There is decreased marrow signal throughout the imaged spinal elements and bony pelvis. I confirmed with the referring clinician that this patient has underlying anemia and the low marrow signal is most likely attributable to anemia. Marrow replacement processes could appear similar. - The partially imaged bladder is significantly distended. CTA chest 10/26/2017: 1. No evidence of central pulmonary embolus. Assessment of the distal vasculature is limited due to respiratory motion artifact. 2. Pulmonary findings compatible with interstitial and mild alveolar edema. Given the history of recent blood transfusion, this may reflect sequelae of transfusion related acute lung injury. 3. Small pleural effusions. 4. Mildly prominent mediastinal/hilar lymph nodes, which may be reactive in the setting of edema. Assessment/Plan Assessment: Mr. Peralta is a 31-year-old male with asthma who presented with back pain. Pain radiates to the left leg. Pain has been ongoing for about 1 month now per the patient. On presentation, he was noted to have severe microcytic anemia with hemoglobin of 7.2 and hematocrit of 22.2. MCV was 73.9. His renal function and liver function were normal. He had elevated reticulocyte counts. Iron studies demonstrated low serum iron and TIBC with normal ferritin. Vitamin B12 and folate are normal. He has elevated ESR and CRP. MRI of the lumbar spine demonstrated osteomyelitis/discitis at L5-S1 with an adjacent epidural phlegmon. There was low marrow signal. He is of [place] descent. Hematology is consulted for his anemia. Blood work demonstrated microcytic anemia. He denies any personal or family history of anemia or blood disorder. There is no available records of previous blood work. He has no upper GI bleeding with EGD. Thalassemia is possible in this setting. His iron studies demonstrated anemia of chronic inflammation. ESR and CRP are both elevated. This suggest inflammatory process. He is not iron deficiency. Renal function and liver functions are normal. Hemolysis are less likely. Smear demonstrated only rare schistocytes which makes TTP less likely along with the normal bilirubin and renal function. Given the elevated reticulocytes, marrow process is less likely. Anemia is more than likely secondary to inflammatory process. Drug induced is also possible. It is unclear if he truly did not use any illicit drugs. He is undergoing bone biopsy and likely will also sample bone marrow at that time. For now, he may be treated with supportive measure and obtain records. Recommendations: Microcytic anemia: -obtain records from previous providers -consider hemoglobinopathy evaluation if chronic anemia -support measure with transfusion as needed -no need for iron supplements (normal ferritin) -consider marrow evaluation with bone biopsy Osteomyelitis: -bone biopsy as per primary -ID recommendations Problem List: 1. Anemia 2. Osteomyelitis Other Findings/Comments: Please call [phone] with any questions or concerns. Consult Acknowledgment - Thank you for your consult request.
[2017-10-26 08:27] LABS: ABSOLUTE BASOPHIL COUNT 0 /CUMM (0.0-0.2); ABSOLUTE EOSINOPHIL COUNT 0.1 /CUMM (0.0-0.7); ABSOLUTE GRANULOCYTE CT 6.9 /CUMM (1.4-6.5); ABSOLUTE LYMPH COUNT 1.3 /CUMM (1.2-3.4); ABSOLUTE MONOCYTE COUNT 0.5 /CUMM (0.10-0.60); BASOPHIL % 0.3 % (0.0-2.0); EOSINOPHIL % 0.9 % (0-5); HEMATOCRIT 26.3 % (42-52); MEAN CORPUSCULAR HGB 24.7 PG (27.0-31.0); MEAN CORPUSCULAR HGB CONC 32.8 G/DL (33.0-37.0); MEAN CORPUSCULAR VOLUME 75.4 FL (80.0-94.0); MEAN PLATELET VOLUME 7.9 FL (7.4-10.4); PLATELET COUNT 449 /CUMM (130-400); RBC DISTRIBUTION WIDTH 17.1 % (11.5-14.5); RED BLOOD CELL CT 3.49 /CUMM (4.70-6.10); WHITE BLOOD CELL COUNT 8.8 /CUMM (4.8-10.8)
--- NOTE | 2017-10-26 09:49 | PN- Housestaff ---
Maryann DELONG,Tucker 10/26/17 0937: Subjective Follow-up For: L5-S1 osteomyelitis; anemia Complaints: "feverish feeling last night" Tele-Events Since Last Visit: sinus rhythm, sinus tachycardia Subjective: I followed up on the patient today. He is resting comfortably in bed, does not appear to be in distress currently. He was transferred from general medical floor to the telemetry unit last night for the concerns of tachycardia, and tachypnea. He does not seem to be tachypneic right now, and is able to speak in full sentences without any respiratory distress. His pulse rate is on the upper normal range. Of note, he received 1 unit of PRBC last night when he felt fevers, and mild short of breath. This morning, he says he still has low back pain in pain over his left buttock. He is currently kept n.p.o. for interventional radiology procedure later at 10 AM. Review of Systems Constitutional: Reports: see HPI. Objective Last 24 Hrs of Vital Signs/I&O Vital Signs Date Time Temp Pulse Resp B/P B/P Pulse O2 O2 Flow FiO2 Mean Ox Delivery Rate 10/26 0703 98.1 106 30 116/62 94 Room Air / 0035 99.9 80 40 110/38 94 Room Air / 0000 97 Room Air / 2030 98.7 100 30 110/48 95 Room Air / 1725 98.7 89 22 112/52 05/03 1443 98.5 68 20 110/75 97 Room Air / 1137 98.2 103 22 110/70 97 Room Air Intake & Output 10/26 1600 /04 0800 05/04 0000 Intake Total 250 Output Total 300 450 Balance -50 -450 Intake, IV 150 Intake, Oral 100 Output, Urine 300 450 Physical Exam General Appearance: Alert, Oriented X3, Cooperative, No Acute Distress Skin: No Rashes, No Breakdown, No Significant Lesion Skin Temp/Moisture Exam: Warm/Dry Sepsis Skin Exam (color): Normal for Ethnicity HEENT: Atraumatic, PERRLA, EOMI, Mucous Membr. moist/pink Neck: Supple, No JVD, No thryomegaly Cardiovascular: Regular Rate, Normal S1, Normal S2, No Murmurs Lungs: Clear to Auscultation, Normal Air Movement Abdomen: Normal Bowel Sounds, Soft, No Tenderness Neurological: grossly intact, no motor, sensory deficit in lower extremities, no incontinence, spine exam: locally tender over lower lumbar region, no open wound or swelling or skin changes Extremities: No Clubbing, No Cyanosis, No Edema, Normal Pulses, No Tenderness/ Swelling Vascular: Normal Pulses, Pulses Symmetrical Sepsis Peripheral Pulse Location: Radial Sepsis Peripheral Pulse Exam: Normal Sepsis Cap Refill Exam: <2 Sec Current Medications: Current Medications Sig/Sue Start time Last Medication Dose Route Stop Time Status Admin Acetaminophen 1,000 MG ONCE ONE 10/26 0415 DC 10/26 N/A 1 UNIT IV 10/26 0429 0418 Albuterol Sulfate 3 ML ONCE ONE 10/26 0815 DC 10/26 INH 10/26 0816 0807 Albuterol Sulfate 2 PUF Q4P PRN 10/26 0815 AC INH Chlorhexidine 1 GM .STK-MED ONE 10/25 1149 DC Gluconate TOP 10/25 1150 Diazepam 2 MG 4 TIMES/DAY PRN 10/25 1315 10/26 PO 0631 Enoxaparin Sodium 40 MG DAILY 10/25 1041 DC SC Ergocalciferol 50,000 IU QTHURS 10/25 1315 AC 10/25 PO 12/06 0901 1659 Ferrous Sulfate 325 MG TID 10/25 1400 AC 10/26 PO 0817 Furosemide 20 MG ONCE ONE 10/25 2345 DC 10/26 PO 10/25 2346 0028 Ibuprofen 600 MG Q6 10/25 1200 DC 10/25 PO 1127 Lidocaine 1 PAT DAILY PRN 10/26 0415 AC 10/26 EXT 0426 Morphine Sulfate 2 MG Q4-6 PRN PRN 10/25 1630 10/26 IV 0623 Morphine Sulfate 2 MG Q6P PRN 10/25 1400 DC 10/25 IV 1510 Nicotine 14 MG DAILY 10/25 1957 10/26 TOP 0028 Oxycodone/ 2 TAB Q6P PRN 10/25 1415 AC 10/26 Acetaminophen PO 0817 Oxycodone/ 1 TAB ONCE ONE 10/25 1400 DC 10/25 Acetaminophen PO 10/25 1401 1412 Oxycodone/ 1 TAB Q6P PRN 10/25 1300 DC 10/25 Acetaminophen PO 1316 Polyethylene Glycol 17 GM DAILY 10/26 0900 AC PO Zolpidem Tartrate 10 MG AT BEDTIME NEED.. 10/25 1730 AC 10/25 PO 2315 Last 24 Hrs of Lab/Gustavo Results Last 24 Hrs of Labs/Mics: Laboratory Tests 10/26/17 0830: Troponin I Pending 10/26/17 0724: Anion Gap 11, Estimated GFR > 60, BUN/Creatinine Ratio 17.5, CBC w Diff NO MAN DIFF REQ, RBC 3.49 L, MCV 75.4 L, MCH 24.7 L, MCHC 32.8 L, RDW 17.1 H, MPV 7.9, Gran % 78.0 H, Lymphocytes % 15.2 L, Monocytes % 5.6, Eosinophils % 0.9, Basophils % 0.3, Absolute Granulocytes 6.9 H, Absolute Lymphocytes 1.3, Absolute Monocytes 0.5, Absolute Eosinophils 0.1, Absolute Basophils 0 10/26/17 0055: Troponin I 0.06 10/26/17 0049: Troponin I Cancelled 10/25/17 2207: D-Dimer High Sensitivty 772 H 10/25/17 2133: Troponin I 0.05, CBC w Diff NO MAN DIFF REQ, RBC 3.31 L, MCV 75.4 L, MCH 24.6 L, MCHC 32.6 L, RDW 17.6 H, MPV 7.5, Gran % 77.3 H, Lymphocytes % 15.3 L, Monocytes % 6.1, Eosinophils % 1.0, Basophils % 0.3, Absolute Granulocytes 6.2, Absolute Lymphocytes 1.2, Absolute Monocytes 0.5, Absolute Eosinophils 0.1, Absolute Basophils 0 10/25/17 1405: PT 16.3 H, INR 1.49 H, APTT 29 10/25/17 1310: ESR Westergren 121 H 10/25/17 1305: Urine Opiates Screen 2619.00 H, Methadone Screen 48, Barbiturate Screen < 60, Ur Phencyclidine Scrn < 6.00, Amphetamines Screen < 100, U Benzodiazepines Scrn < 85, Urine Cocaine Screen 253, Urine Cannabis Screen > 80.00 H, Urine Color YEL, Urine Clarity CLEAR, Urine pH 6.0, Ur Specific [place] 1.010, Urine Protein NEG, Urine Ketones NEG, Urine Nitrite NEG, Urine Bilirubin NEG, Urine Urobilinogen 0.2, Ur Leukocyte Esterase NEG, Ur Microscopic EXAM NOT REQUIRED, Urine Hemoglobin NEG, Urine Glucose NEG 10/25/17 1042: C-Reactive Prot, Quant Cancelled Microbiology 10/27 799 TRUNK: AFB Culture with PCR Identification - COLB 10/27 799 TRUNK: AFB Smear Concentration - COLB 10/27 799 TRUNK: Culture & Sensitivity - COLB 10/27 799 TRUNK: Gram Stain - COLB 10/27 799 TRUNK/O.R.: Fungal Culture - COLB Assessment/Plan Assessment: 31-year-old male with past medical history only reported as childhood asthma taking inhalers frequently, presented to the emergency department yesterday with severe low back pain, with some radiation to the left lower extremity. Patient reported that he had left calf pain 2 months ago, was evaluated at [facility] and discharged. he later presented to [facility], and managed with IV antibiotics. He started having low back pain gradually in onset since past 2 weeks increasing severity, associated with sweating but no fever/chills, and presented to [facility] s emergency department. Of note, he initially denied any IV drug abuse, but later he has clinical findings unfolded mentioned that he hasn't had used IV drug since a very long time. 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 He denies any recent trauma or intervention. He has had no recent dental work. He does report cutting his left great toenail short to the point of bleeding at the time of his recent [place] hospitalization. On presentation, he had white blood cell count of 10,000, H&H 7 and 22, with MCV of 74, platelets 458,000, BUN/creatinine 13 and .6, alkaline phosphatase 142, C- reactive protein greater than 9, INR 1.49/PTT normal. Urinalysis negative. Chest x-ray revealed diffuse bilateral interstitial opacities. X-ray of the lumbosacral spine revealed bilateral L5 pars defect with grade 1 anterolisthesis of L5 on S1. An MRI of the lumbosacral spine revealed findings most compatible with osteomyelitis/discitis at L5-S1, with an adjacent epidural phlegmon. He was evaluated by GI and underwent an upper endoscopy, which was normal. He does NOT have cauda equina syndrome and his vitals are stable. Neurosurgery recommended medical interventions for the spinal osteomyelitis. He received one uint of PRBC last night. He had tachycardia and tachypnea and PE was ruled out last night by CTA Chest. He underwent CT guided vertebral culture and biopsy today. We collected three sets of blood cultures. NO antibiotics have been started yet. Echocardiogram done this morning revealed mild hypokinesis of mid to distal anteroseptal, and aortic valve is thickened with a large echodensity consistent with vegetation on the noncoronary cusp of the aortic valve. Bicuspid aortic valve could not be excluded and there was moderate to severe aortic regurgitation. After considering the severity of the illnesses of osteomyelitis and infective endocarditis, with the possibility of surgical intervention, entry level business analyst recommended transferring the patient to [facility] in anticipation for further surgical interventions. Dr Kasandra Noble would be the accepting physician per information provided to me. Patient explained about the situation in detail and consents to the transfer. He mentioned that he himself would talk to his family about the situation and transfer and mentioned us NOT to call them about it. Problem List: 1. Osteomyelitis 2. Infective endocarditis 3. Anemia 4. Drug abuse, IV 5. Intractable back pain Pain Ratin Pain Location: LOWER BACK Pain Goal: Pain 4 or less Pain Plan: prn, morphine Tomorrow's Labs & Rationales: - Pamrinder Hernandez MD 10/26/17 0152: Attending MD Review Statement Attending Statement Attending MD Statement: examined this patient, discuss w/resident/PA/DIRECTOR HEALTH, agreed w/resident/PA/DIRECTOR HEALTH, reviewed EMR data (avail), discussed with nursing, discussed with case mgmt, reviewed images, amended to note Attending Assessment/Plan: The patient was seen and discussed with house staff (several times today), nursing, case management, IR, ID, and cardiology. ECHO showed valvular vegetation as noted above and the patient underwent L5-S1 aspiration/bone sampling in IR today. Appears to represent endocarditis with subsequent spinal infection. BC x 3 drawn (were ordered in ED, however not done). The patient was reluctant regarding care and we discussed need for each test with him. He did admit use of IV drugs in the past (he had denied yesterday), however still notes he has not used in recent past (he has no stigmata of recent use). Cardiology consult Events of last night noted and CTPA negative. He did have interstitial changes on admission CXR and etiology still unclear. His father stated that he had been at [facility] (not [place] as patient had stated) and records were requested (not arrived yet). Transfer to [facility] via [facility] for cardiovascular surgical evaluation.
--- NOTE | 2017-10-26 10:44 | ECHOCARDIOGRAM REPORT ---
SON AZEVEDO Age: 31 : 1985 Gender: M Exam Date: 10/26/2017 08:59 Exam Location: 1 North Ht (in): 66 Wt (lb): 187 BSA: 2.01 BP: 116 / 62 Ordering Physician: Safia Cobb MD Referring Physician: Safia Cobb MD Technologist: Antione Mei [facility] Room Number: 179-2 Indications: Shortness of breath Rhythm: Technical Quality: Fair FINDINGS Left Ventricle Left ventricular cavity size at the upper limits of normal. Left ventricular wall thickness mildly increased. There is mild hypokinesis of the mid to distal anteroseptum. Left ventricular ejection fraction is estimated at 50-55 %. Right Ventricle Normal right ventricular size and function. Right Atrium Normal right atrial size. Left Atrium Left atrial size at the upper limits of normal. Mitral Valve Structurally normal mitral valve. Trace to mild mitral regurgitation. Aortic Valve The aortic valve is thickened with a large echodensity consistent with vegetation on the noncoronary cusp of the aortic valve. Bicuspid aortic valve can not be excluded. [id number] aortic regurgitation. Tricuspid Valve Tricuspid valve not well visualized, grossly normal. Trace tricuspid regurgitation. Unable to estimate the right ventricular systolic pressure. Pulmonic Valve Pulmonic valve not well visualized. Pericardium No pericardial effusion. Great Vessels Normal size aortic root. The ascending aorta is not well seen. CONCLUSIONS Left ventricular cavity size at the upper limits of normal. Left ventricular wall thickness mildly increased. There is mild hypokinesis of the mid to distal anteroseptum. Left ventricular ejection fraction is estimated at 50-55 %. Left atrial size at the upper limits of normal. The aortic valve is thickened with a large echodensity consistent with vegetation on the noncoronary cusp of the aortic valve. Bicuspid aortic valve can not be excluded. [id number]-[id number] aortic regurgitation. Unable to estimate the right ventricular systolic pressure. Oscar Frazier M.D. (Electronically Signed) Final Date: 26 Oct 2017 10:43 MEASUREMENTS (Male / Female) Normal Values 2D ECHO LV Diastolic Diameter PLAX 6.0 cm 4.2 - 5.9 / 3.9 - 5.3 cm LV Systolic Diameter PLAX 4.1 cm 2.1 - 4.0 cm LV Fractional Shortening PLAX 31.7 % 25 - 46 % LV Ejection Fraction 2D Teich 58.8 % IVS Diastolic Thickness 1.3 cm LVPW Diastolic Thickness 1.2 cm LV Relative Wall Thickness 0.4 LVOT Diameter 1.7 cm Aortic Root Diameter 3.1 cm LA Systolic Diameter LX 4.1 cm 3.0 - 4.0 / 2.7 - 3.8 cm LA Volume 69.0 cm 18 - 58 / 22 - 52 cm Ascending Aorta Diameter 3.4 cm DOPPLER AV Peak Velocity 235.0 cm/s AV Peak Gradient 22.1 mmHg AV Mean Velocity 168.0 cm/s AV Mean Gradient 13.0 mmHg AV Velocity Time Integral 47.6 cm AI Deceleration Mccreary 758.0 cm/s AI Peak Velocity 409.0 cm/s AI Pressure Half Time 158.0 ms AI Peak Gradient 66.9 mmHg LVOT Peak Velocity 111.0 cm/s LVOT Peak Gradient 4.9 mmHg LVOT Mean Velocity 77.2 cm/s LVOT Mean Gradient 3.0 mmHg LVOT Velocity Time Integral 23.6 cm LVOT Stroke Volume 53.6 cm AV Area Cont Eq vti 1.1 cm AV Area Cont Eq pk 1.1 cm MV Peak Velocity 174.0 cm/s MV Peak Gradient 12.1 mmHg MV Mean Velocity 84.1 cm/s MV Mean Gradient 4.0 mmHg Mitral E Point Velocity 162.0 cm/s MV PHT Velocity 178.0 cm/s MV Deceleration Mccreary 777.0 cm/s MV Pressure Half Time 68.7 ms MV Area PHT 3.2 cm MV Deceleration Time 137.0 ms TR Peak Velocity 338.0 cm/s TR Peak Gradient 45.7 mmHg Right Atrial Pressure 10.0 mmHg Pulmonary Artery Systolic Pressu 55.7 mmHg Right Ventricular Systolic Press 55.7 mmHg LV E' Lateral Velocity 11.3 cm/s Mitral E to LV E' Lateral Ratio 14.3
--- NOTE | 2017-10-26 13:13 | Discharge Summary ---
See Addendum Visit Information Visit Dates Admission Date: 10/25/17 Discharge Date: 10/26/17 Hospital Course Course Attending Physician: David DELONG,Parminder Primary Care Physician: Patient Has No Primary Care Dr Hospital Course: 31-year-old male with past medical history only reported as childhood asthma taking inhalers frequently, presented to the emergency department yesterday with severe low back pain, with some radiation to the left lower extremity. Patient reported that he had left calf pain 2 months ago, was evaluated at [facility] and discharged. he later presented to [facility], and managed with IV antibiotics. He started having low back pain gradually in onset since past 2 weeks increasing severity, associated with sweating but no fever/chills, and presented to [facility] s emergency department. Of note, he initially denied any IV drug abuse, but later he has clinical findings unfolded mentioned that he hasn't had used IV drug since a very long time. 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 He denies any recent trauma or intervention. He has had no recent dental work. He does report cutting his left great toenail short to the point of bleeding at the time of his recent [place] hospitalization. On presentation, he had white blood cell count of 10,000, H&H 7 and 22, with MCV of 74, platelets 458,000, BUN/creatinine 13 and .6, alkaline phosphatase 142, C- reactive protein greater than 9, INR 1.49/PTT normal. Urinalysis negative. Chest x-ray revealed diffuse bilateral interstitial opacities. X-ray of the lumbosacral spine revealed bilateral L5 pars defect with grade 1 anterolisthesis of L5 on S1. An MRI of the lumbosacral spine revealed findings most compatible with osteomyelitis/discitis at L5-S1, with an adjacent epidural phlegmon. He was evaluated by GI and underwent an upper endoscopy, which was normal. He does NOT have cauda equina syndrome and his vitals are stable. Neurosurgery recommended medical interventions for the spinal osteomyelitis. He received one uint of PRBC last night. He had tachycardia and tachypnea and PE was ruled out last night by CTA Chest. He underwent CT guided vertebral culture and biopsy today. We collected three sets of blood cultures. NO antibiotics have been started yet. Echocardiogram done this morning revealed mild hypokinesis of mid to distal anteroseptal, and aortic valve is thickened with a large echodensity consistent with vegetation on the noncoronary cusp of the aortic valve. Bicuspid aortic valve could not be excluded and there was moderate to severe aortic regurgitation. After considering the severity of the illnesses of osteomyelitis and infective endocarditis, with the possibility of surgical intervention, manufacturing controller recommended transferring the patient to [facility] in anticipation for further surgical interventions. Dr Kasandra Noble would be the accepting physician per information provided to me. Patient explained about the situation in detail and consents to the transfer. He mentioned that he himself would talk to his family about the situation and transfer and mentioned us NOT to call them about it. Allergies: Coded Allergies: No Known Drug Allergies (NKDA 10/20/17) Pertinent Lab Results: Echo 10/26/17: CONCLUSIONS Left ventricular cavity size at the upper limits of normal. Left ventricular wall thickness mildly increased. There is mild hypokinesis of the mid to distal anteroseptum. Left ventricular ejection fraction is estimated at 50-55 %. Left atrial size at the upper limits of normal. The aortic valve is thickened with a large echodensity consistent with vegetation on the noncoronary cusp of the aortic valve. Bicuspid aortic valve can not be excluded. [id number]-eo-mphpac aortic regurgitation. Unable to estimate the right ventricular systolic pressure. Oscar Frazier M.D. (Electronically Signed) Final Date: 26 Oct 2017 10:43 MRI spine 10/25/17: IMPRESSION: - Imaging findings are most compatible with osteomyelitis discitis at L5-S1 with adjacent epidural phlegmon resulting in mild narrowing of the central canal and partial effacement of the subarticular zones bilaterally, contacting the traversing S1 nerve roots bilaterally. Postcontrast imaging could be obtained to assess for any discrete abscesses. - As noted on the recent plain films there are bilateral L5 pars defects and there is grade 1 spondylolytic anterolisthesis of L5 on S1 with listhesis, uncovered disc, and degenerative changes resulting in severe bilateral foraminal stenosis at L5-S1 with compression of the exiting L5 nerve roots bilaterally, greater on the left side. - There is decreased marrow signal throughout the imaged spinal elements and bony pelvis. I confirmed with the referring clinician that this patient has underlying anemia and the low marrow signal is most likely attributable to anemia. Marrow replacement processes could appear similar. - The partially imaged bladder is significantly distended. These findings were discussed with Dr. Myers at 1:20 PM on 10/25/2017. DICTATED BY: Sixto Roberson MD DATE/TIME DICTATED:10/25/171310 HOUSE PRINCIPAL:KIDD DATE/TIME TRANSCRIBED:10/25/171310 CTA 10/26/17 IMPRESSION: 1. No evidence of central pulmonary embolus. Assessment of the distal vasculature is limited due to respiratory motion artifact. 2. Pulmonary findings compatible with interstitial and mild alveolar edema. Given the history of recent blood transfusion, this may reflect sequelae of transfusion related acute lung injury. 3. Small pleural effusions. 4. Mildly prominent mediastinal/hilar lymph nodes, which may be reactive in the setting of edema. VTE: negative DICTATED BY: Bam Rouse MD DATE/TIME DICTATED:10/26/17145 HOUSE PRINCIPAL:KIDD DATE/TIME TRANSCRIBED:10/26/17145 Disposition Summary Disposition Principal Diagnosis: L5-S1 osteomyelitis, cardiac vegetation/infective endocarditis Additional Diagnosis: Childhood asthma Discharge Disposition: other general hospital Discharge Instructions General Discharge Information Code Status: Full Code Patient's Diet: Regular diet Patient's Activity: As tolerated Follow-Up Instructions/Appts: Patient is being transferred to [facility], will have to follow up as per instructions from there. Medications at Discharge Discharge Medications: Stop taking the following medications: Ibuprofen (Ibuprofen) 800 MG TABLET ORAL THREE TIMES DAILY as needed for pain Qty = 30 Cyclobenzaprine HCl (Cyclobenzaprine HCl) 10 MG TABLET ORAL THREE TIMES DAILY as needed for MUSCLE SPASM Qty = 30 Oxycodone HCl/Acetaminophen (Percocet 5-325 MG Tablet) 5 MG-325 MG TABLET ORAL 4 times daily as needed as needed for PAIN Qty = 10 Continue taking these medications: Zolpidem Tartrate (Ambien) 10 MG TABLET 1 Tablet ORAL Every night as needed as needed for SLEEP Comments: NOT GIVEN IN HOSPITAL Start taking the following new medications: Ergocalciferol (Vitamin D2) (Vitamin D2) 50,000 UNIT CAPSULE 50,000 International Unit ORAL EVERY SUNDAY Qty = 7 No Refills Comments: NOT GIVEN IN HOSPITAL Copies To: Nelly DELONG,Dot; Fanny DELONG,Lino; Wild DELONG,Donta Connors; Dane DELONG,Jose Luis García Attending MD Review Statement Documenting Attending: Parminder Hernandez MD Other Findings: The patient was seen and discussed with house staff, nursing, case management, ID, Cardiology, CV surgery. Plan transfer to [place] for cardiac eval via [facility]. Note the patient was using Morphine sulfate 5 mg IV and Valium for muscle relaxant. These were left off the CMR and discharge med list and Hospitalist at [facility] was informed by myself.
[2017-10-26] MEDS ORDERED: VITAMIN D250000 UNIT PO (13:43)
--- NOTE | 2017-10-26 13:45 | Patient Discharge Instructions ---
Discharge Instructions General Discharge Information You were seen/treated for: L5-S1 osteomyelitis, cardiac vegetation/infective endocarditis Special Instructions: Patient is being transferred to [facility]. Diet Continue normal diet: Yes Activity Full Activity/No Limits: No Activity Self Limited: Yes Acute Coronary Syndrome Inclusion Criteria At DC or during hospital stay patient has or had the following: ACS DIAGNOSIS No Discharge Core Measures Meds if any: Prescribed or Continued at Discharge Meds if any: NOT Prescribed or Continued at Discharge Congestive Heart Failure Inclusion Criteria At DC or during hospital stay patient has or had the following: CHF DIAGNOSIS No Discharge Core Measures Meds if any: Prescribed or Continued at Discharge Meds if any: NOT Prescribed or Continued at Discharge Cerebrovascular accident Inclusion Criteria At DC or during hospital stay patient has or had the following: CVA/TIA Diagnosis No Discharge Core Measures Meds if any: Prescribed or Continued at Discharge Meds if any: NOT Prescribed or Continued at Discharge Venous thromboembolism Inclusion Criteria VTE Diagnosis No VTE Type NONE VTE Confirmed by (Test) NONE Discharge Core Measures - Per Current guidelines, there needs to be overlap - treatment for the first 5 days of Warfarin therapy. - If discharged on Warfarin prior to 5 days of - overlap therapy, the patient will need to be - assessed for post discharge needs including - *Post discharge parental anticoagulation - *Warfarin and/or parental anticoagulation education - *Follow up date to check INR post discharge At least 5 days overlap therapy as Inpatient No Meds if any: Prescribed or Continued at Discharge Note: Overlap Therapy is Warfarin and Anticoagulant Meds if any: NOT Prescribed or Continued at Discharge
--- NOTE | 2017-10-26 14:12 | Cons- Cardiology ---
General Information and HPI Consulting Request Date of Consult: 10/26/17 Requested By: Parminder Hernandez MD Reason for Consult: endocarditis History of Present Illness: Patient walked into ED last night with complaints of lower back pain, progressing over a couple of weeks. MRI revealed likely osteomyelitis involving L5-S1. Subsequent echocardiogram shows a large mobile vegetation of aortic side of aortic valve, and severe hypokinesis of distal anterior wall In addition, ischemic changes on the EKG involving anterior leads. IR-guided biopsy of vertebrae was performed this afternoon. patient is hemodynamically stable atthis time. Allergies/Medications Allergies: Coded Allergies: No Known Drug Allergies (NKDA 10/20/17) Home Med List: Ergocalciferol (Vitamin D2) (Vitamin D2) 50,000 UNIT CAPSULE 50,000 IU PO QTHURS LOW VIT D Zolpidem Tartrate (Ambien) 10 MG TABLET 1 TAB PO QPMP PRN SLEEP (Reported) Current Medications: Current Medications Sig/Sue Start time Last Medication Dose Route Stop Time Status Admin Acetaminophen 1,000 MG ONCE ONE 10/26 0415 DC 10/26 N/A 1 UNIT IV 10/26 0429 0418 Albuterol Sulfate 3 ML ONCE ONE 10/26 0815 DC 10/26 INH 10/26 0816 0807 Albuterol Sulfate 2 PUF Q4P PRN 10/26 0815 AC INH Diazepam 2 MG 4 TIMES/DAY PRN 10/25 1315 AC 10/26 PO 1344 Ergocalciferol 50,000 IU QTHURS 10/25 1315 AC 10/25 PO 12/06 0901 1659 Fentanyl Citrate 0 .STK-MED ONE 10/26 1203 DC .ROUTE Fentanyl Citrate 0 .STK-MED ONE 10/26 1104 DC .ROUTE Ferrous Sulfate 325 MG TID 10/25 1400 AC 05 PO 0817 Furosemide 20 MG ONCE ONE 10/25 2345 DC 05/04 PO 10/25 2346 0028 Lidocaine 1 PAT DAILY PRN 10/26 0415 AC 10/26 EXT 0426 Midazolam HCl 0 .STK-MED ONE 10/26 1203 DC .ROUTE Midazolam HCl 0 .STK-MED ONE 10/26 1105 DC .ROUTE Morphine Sulfate 2 MG ONCE ONE 10/26 1400 DC /04 IV 04 1401 1405 Morphine Sulfate 2 MG Q4-6 PRN PRN 10/25 1630 AC 10/26 IV 1344 Morphine Sulfate 2 MG Q6P PRN 10/25 1400 DC 10/25 IV 1510 Naloxone HCl 0 .STK-MED ONE 10/26 1105 DC .ROUTE Nicotine 14 MG DAILY 10/25 1957 10/26 TOP 0028 Oxycodone/ 2 TAB Q6P PRN 10/25 1415 10/26 Acetaminophen PO 0817 Polyethylene Glycol 17 GM DAILY 10/26 0900 AC PO Zolpidem Tartrate 10 MG AT BEDTIME NEED.. 10/25 1730 10/25 PO 2315 Past History Travel History Traveled to [place] past 21 day No Medical History Neurological: NONE EENT: NONE Cardiovascular: NONE Respiratory: asthma Gastrointestinal: NONE Hepatic: NONE Renal: NONE Psychiatric: NONE Endocrine: NONE Blood Disorders: NONE Cancer(s): NONE STUDY SPECIALIST/Reproductive: NONE Surgical History Surgical History: non-contributory Psychosocial History Where Do You Live? Home Who Do You Live With? [facility] Services at Home: None Primary Language: Turkish Smoking Status: Current Some Day Smoker ETOH Use: occasional use Illicit Drug Use: marijuana Living Will? unknown Functional Ability ADLs Independent: dressing, eating, toileting, bathing. 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 Exam & Diagnostic Data Vital Signs and I&O Vital Signs Date Time Temp Pulse Resp B/P B/P Pulse O2 O2 Flow FiO2 Mean Ox Delivery Rate 10/26 0800 Room Air Room Air 10/26 0703 98.1 106 30 116/62 94 Room Air 10/26 0035 99.9 80 40 110/38 94 Room Air 10/26 0000 97 Room Air 10/25 2030 98.7 100 30 110/48 95 Room Air 10/25 1725 98.7 89 22 112/52 10/25 1443 98.5 68 20 110/75 97 Room Air Intake & Output 10/26 1600 10/26 0800 / 0000 10/25 1600 10/25 0800 10/25 0000 Intake Total 250 0 Output Total 300 450 300 Balance -50 -450 -300 0 Intake, IV 150 Intake, Oral 100 0 Output, Urine 300 450 300 Patient 188 lb 170 lb Weight Weight Bed scale Reported by Patient Measurement Method Physical Exam General Appearance: alert, awake, moderate distress Head: atraumatic Eyes: Bilateral: PERRL. Ears, Nose, Throat: normal pharynx, moist mucus membranes Neck: supple, trachea mid line, no midline tenderness Respiratory: normal breath sounds, no respiratory distress, lungs clear Cardiovascular: regular rate/rhythm, gallop, systolic murmur, diastolic murmur ( left sternal border, decrescen) Gastrointestinal: normal bowel sounds, soft, non-tender, no organomegaly Back: lower lumbar pain at touch and upon movement. Extremities: normal capillary refill, no edema, No evidence of septic emboli Labs/Gustavo Results: Laboratory Tests 10/26 10/26 10/26 0830 0724 0055 Chemistry Sodium (137 - 145 mmol/L) 141 Potassium (3.5 - 5.1 mmol/L) 3.8 Chloride (98 - 107 mmol/L) 104 Carbon Dioxide (22 - 30 mmol/L) 25 Anion Gap (5 - 16) 11 BUN (9 - 20 mg/dL) 14 Creatinine (0.7 - 1.2 mg/dL) 0.8 Estimated GFR (>60 ml/min) > 60 BUN/Creatinine Ratio (7 - 25 %) 17.5 Troponin I (<0.11 ng/ml) 0.06 0.06 Hematology CBC w Diff NO MAN DIFF REQ WBC (4.8 - 10.8 /CUMM) 8.8 RBC (4.70 - 6.10 /CUMM) 3.49 L Hgb (14.0 - 18.0 G/DL) 8.6 L Hct (42 - 52 %) 26.3 L MCV (80.0 - 94.0 FL) 75.4 L MCH (27.0 - 31.0 PG) 24.7 L MCHC (33.0 - 37.0 G/DL) 32.8 L RDW (11.5 - 14.5 %) 17.1 H Plt Count (130 - 400 /CUMM) 449 H MPV (7.4 - 10.4 FL) 7.9 Gran % (42.2 - 75.2 %) 78.0 H Lymphocytes % (20.5 - 51.1 %) 15.2 L Monocytes % (1.7 - 9.3 %) 5.6 Eosinophils % (0 - 5 %) 0.9 Basophils % (0.0 - 2.0 %) 0.3 Absolute Granulocytes (1.4 - 6.5 /CUMM) 6.9 H Absolute Lymphocytes (1.2 - 3.4 /CUMM) 1.3 Absolute Monocytes (0.10 - 0.60 /CUMM) 0.5 Absolute Eosinophils (0.0 - 0.7 /CUMM) 0.1 Absolute Basophils (0.0 - 0.2 /CUMM) 0 10/26 10/25 10/25 0049 2207 2133 Chemistry Troponin I (<0.11 ng/ml) Cancelled 0.05 Coagulation D-Dimer High Sensitivty (0 - 243 ng/ml) 772 H Hematology CBC w Diff NO MAN DIFF REQ WBC (4.8 - 10.8 /CUMM) 8.1 RBC (4.70 - 6.10 /CUMM) 3.31 L Hgb (14.0 - 18.0 G/DL) 8.1 L Hct (42 - 52 %) 25.0 L MCV (80.0 - 94.0 FL) 75.4 L MCH (27.0 - 31.0 PG) 24.6 L MCHC (33.0 - 37.0 G/DL) 32.6 L RDW (11.5 - 14.5 %) 17.6 H Plt Count (130 - 400 /CUMM) 435 H MPV (7.4 - 10.4 FL) 7.5 Gran % (42.2 - 75.2 %) 77.3 H Lymphocytes % (20.5 - 51.1 %) 15.3 L Monocytes % (1.7 - 9.3 %) 6.1 Eosinophils % (0 - 5 %) 1.0 Basophils % (0.0 - 2.0 %) 0.3 Absolute Granulocytes (1.4 - 6.5 /CUMM) 6.2 Absolute Lymphocytes (1.2 - 3.4 /CUMM) 1.2 Absolute Monocytes (0.10 - 0.60 /CUMM) 0.5 Absolute Eosinophils (0.0 - 0.7 /CUMM) 0.1 Absolute Basophils (0.0 - 0.2 /CUMM) 0 10/25 10/25 10/25 1405 1310 1305 Coagulation PT (9.4 - 12.5 SEC) 16.3 H INR (0.90 - 1.17) 1.49 H APTT (25 - 37 SEC) 29 Hematology ESR Westergren (0 - 10 MM) 121 H Toxicology Urine Opiates Screen (>2000 NG/ML) 2619.00 H Methadone Screen (>300 NG/ML) 48 Barbiturate Screen (>200 NG/ML) < 60 Ur Phencyclidine Scrn (>25 NG/ML) < 6.00 Amphetamines Screen (>1000 NG/ML) < 100 U Benzodiazepines Scrn (>200 NG/ML) < 85 Urine Cocaine Screen (>300 NG/ML) 253 Urine Cannabis Screen (>50 NG/ML) > 80.00 H Urines Urine Color (YEL,AMB,STR) YEL Urine Clarity (CLEAR) CLEAR Urine pH (5.0 - 8.0) 6.0 Ur Specific [place] (1.001 - 1.035) 1.010 Urine Protein (NEG,<30 MG/DL) NEG Urine Ketones (NEG) NEG Urine Nitrite (NEG) NEG Urine Bilirubin (NEG) NEG Urine Urobilinogen (0.1 - 1.0 EU/dl) 0.2 Ur Leukocyte Esterase (NEG) NEG Ur Microscopic EXAM NOT REQUIRED Urine Hemoglobin (NEG) NEG Urine Glucose (N MG/DL) NEG 10/25 10/25 1042 0721 Chemistry C-Reactive Prot, Quant Cancelled Hematology CBC w Diff MAN DIFF ORDERED WBC (4.8 - 10.8 /CUMM) 9.7 RBC (4.70 - 6.10 /CUMM) 3.03 L Hgb (14.0 - 18.0 G/DL) 7.3 *L Hct (42 - 52 %) 22.4 L MCV (80.0 - 94.0 FL) 73.9 L MCH (27.0 - 31.0 PG) 24.0 L MCHC (33.0 - 37.0 G/DL) 32.4 L RDW (11.5 - 14.5 %) 16.6 H Plt Count (130 - 400 /CUMM) 477 H MPV (7.4 - 10.4 FL) 7.7 Gran % (42.2 - 75.2 %) 82.2 H Lymphocytes % (20.5 - 51.1 %) 11.7 L Monocytes % (1.7 - 9.3 %) 5.7 Eosinophils % (0 - 5 %) 0.1 Basophils % (0.0 - 2.0 %) 0.3 Absolute Granulocytes (1.4 - 6.5 /CUMM) 8.0 H Absolute Lymphocytes (1.2 - 3.4 /CUMM) 1.1 L Absolute Monocytes (0.10 - 0.60 /CUMM) 0.6 Absolute Eosinophils (0.0 - 0.7 /CUMM) 0 Absolute Basophils (0.0 - 0.2 /CUMM) 0 Platelet Estimate (ADEQUATE) INCREASED Polychromasia 1+ Hypochromic-Microcytic 2+ Poikilocytosis 2+ Anisocytosis 2+ Microcytic Cells 2+ Ovalocytes 1+ Schistocytes Retic Count (0.5 - 2.0 %) 4.37 H 05/03 0600 Chemistry Sodium (137 - 145 mmol/L) 139 Potassium (3.5 - 5.1 mmol/L) 3.6 Chloride (98 - 107 mmol/L) 104 Carbon Dioxide (22 - 30 mmol/L) 24 Anion Gap (5 - 16) 11 BUN (9 - 20 mg/dL) 13 Creatinine (0.7 - 1.2 mg/dL) 0.6 L Estimated GFR (>60 ml/min) > 60 BUN/Creatinine Ratio (7 - 25 %) 21.7 Glucose (65 - 99 mg/dL) 104 H Calcium (8.4 - 10.2 mg/dL) 8.3 L Magnesium (1.6 - 2.3 mg/dL) 1.8 Iron (49 - 181 ug/dL) 30 L TIBC (261 - 462 ug/dL) 231 L Ferritin (17.9 - 464 ng/mL) 414.0 Total Bilirubin (0.2 - 1.3 mg/dL) 1.1 AST (17 - 59 U/L) 25 ALT (21 - 72 U/L) 42 Alkaline Phosphatase (< 127 U/L) 142 H C-Reactive Prot, Quant (<1.0 mg/dL) > 9.0 H Total Protein (6.3 - 8.2 g/dL) 5.9 L Albumin (3.5 - 5.0 g/dL) 2.9 L Globulin (1.9 - 4.2 gm/dL) 3.0 Albumin/Globulin Ratio (1.1 - 2.2 %) 1.0 L Vitamin B12 (239 - 931 pg/mL) 415 25-OH Vitamin D Total (30 - 100 ng/ml) 7.9 L Folate (2.76 - 20.0 ng/mL) 8.3 Hematology CBC w Diff NO MAN DIFF REQ WBC (4.8 - 10.8 /CUMM) 10.0 RBC (4.70 - 6.10 /CUMM) 3.00 L Hgb (14.0 - 18.0 G/DL) 7.2 *L Hct (42 - 52 %) 22.2 L MCV (80.0 - 94.0 FL) 73.9 L MCH (27.0 - 31.0 PG) 24.0 L MCHC (33.0 - 37.0 G/DL) 32.5 L RDW (11.5 - 14.5 %) 16.6 H Plt Count (130 - 400 /CUMM) 458 H MPV (7.4 - 10.4 FL) 8.0 Gran % (42.2 - 75.2 %) 82.9 H Lymphocytes % (20.5 - 51.1 %) 10.7 L Monocytes % (1.7 - 9.3 %) 6.0 Eosinophils % (0 - 5 %) 0.1 Basophils % (0.0 - 2.0 %) 0.3 Absolute Granulocytes (1.4 - 6.5 /CUMM) 8.3 H Absolute Lymphocytes (1.2 - 3.4 /CUMM) 1.1 L Absolute Monocytes (0.10 - 0.60 /CUMM) 0.6 Absolute Eosinophils (0.0 - 0.7 /CUMM) 0 Absolute Basophils (0.0 - 0.2 /CUMM) 0 Serology HIV 1&2 Ab Western Blot (NONREACTIVE) NONREACTIVE Assessment/Plan Assessment/Plan Aortic endocarditis with severe aortic regurgitation in patient with history of IVDU, presenting to ED for lower back pain, which appears to be due to osteomyelitis/discitis. Hemodynamically stable however. Antibiotics begun. specimen of vertebral lesion obtained and sent to microbiology and hematology/ pathology labs. Discussed with telecommunications officer cardiothoracic surgeon at [facility], and patient will be transferred shortly and ideally receive 1-2 weeks of antibiotics prior to valve replacement, if remains hemodynamically stable. Consult Acknowledgment - Thank you for your consult request.
[2017-10-26 14:39] VITALS: BP 120/60
--- NOTE | 2017-10-26 15:13 | PN- Infect Dx ---
Subjective Subjective: Afebrile. He was transferred to telemetry because of tachycardia and tachypnea and was given 1 dose of Lasix. He was noted to have ischemic changes on the EKG involving the anterior leads. At present he complains of low back pain at the site of the recent biopsy. He denies any chest pain or shortness of breath. Objective Last 24 Hrs of Vital Signs/I&O Vital Signs Date Time Temp Pulse Resp B/P B/P Pulse O2 O2 Flow FiO2 Mean Ox Delivery Rate 10/26 1439 97.1 116 22 120/60 98 Room Air 10/26 0800 Room Air Room Air 10/26 0703 98.1 106 30 116/62 94 Room Air 10/26 0035 99.9 80 40 110/38 94 Room Air 10/26 0000 97 Room Air 10/25 2030 98.7 100 30 110/48 95 Room Air 10/25 1725 98.7 89 22 112/52 Intake & Output 10/26 1600 10/26 0800 10/26 0000 Intake Total 120 250 Output Total 500 300 450 Balance -380 -50 -450 Intake, IV 150 Intake, Oral 120 100 Output, Urine 500 300 450 Physical Exam Other Physical Findings: He appears uncomfortable secondary to his back pain Lungs are clear Heart regular rhythm with no murmur Extremities no cyanosis, clubbing or edema Results Last 24 Hours of Lab Results: Laboratory Tests 10/26 10/26 10/26 0830 0724 0055 Chemistry Sodium (137 - 145 mmol/L) 141 Potassium (3.5 - 5.1 mmol/L) 3.8 Chloride (98 - 107 mmol/L) 104 Carbon Dioxide (22 - 30 mmol/L) 25 Anion Gap (5 - 16) 11 BUN (9 - 20 mg/dL) 14 Creatinine (0.7 - 1.2 mg/dL) 0.8 Estimated GFR (>60 ml/min) > 60 BUN/Creatinine Ratio (7 - 25 %) 17.5 Troponin I (<0.11 ng/ml) 0.06 0.06 Hematology CBC w Diff NO MAN DIFF REQ WBC (4.8 - 10.8 /CUMM) 8.8 RBC (4.70 - 6.10 /CUMM) 3.49 L Hgb (14.0 - 18.0 G/DL) 8.6 L Hct (42 - 52 %) 26.3 L MCV (80.0 - 94.0 FL) 75.4 L MCH (27.0 - 31.0 PG) 24.7 L MCHC (33.0 - 37.0 G/DL) 32.8 L RDW (11.5 - 14.5 %) 17.1 H Plt Count (130 - 400 /CUMM) 449 H MPV (7.4 - 10.4 FL) 7.9 Gran % (42.2 - 75.2 %) 78.0 H Lymphocytes % (20.5 - 51.1 %) 15.2 L Monocytes % (1.7 - 9.3 %) 5.6 Eosinophils % (0 - 5 %) 0.9 Basophils % (0.0 - 2.0 %) 0.3 Absolute Granulocytes (1.4 - 6.5 /CUMM) 6.9 H Absolute Lymphocytes (1.2 - 3.4 /CUMM) 1.3 Absolute Monocytes (0.10 - 0.60 /CUMM) 0.5 Absolute Eosinophils (0.0 - 0.7 /CUMM) 0.1 Absolute Basophils (0.0 - 0.2 /CUMM) 0 10/26 10/25 10/25 0049 2207 2133 Chemistry Troponin I (<0.11 ng/ml) Cancelled 0.05 Coagulation D-Dimer High Sensitivty (0 - 243 ng/ml) 772 H Hematology CBC w Diff NO MAN DIFF REQ WBC (4.8 - 10.8 /CUMM) 8.1 RBC (4.70 - 6.10 /CUMM) 3.31 L Hgb (14.0 - 18.0 G/DL) 8.1 L Hct (42 - 52 %) 25.0 L MCV (80.0 - 94.0 FL) 75.4 L MCH (27.0 - 31.0 PG) 24.6 L MCHC (33.0 - 37.0 G/DL) 32.6 L RDW (11.5 - 14.5 %) 17.6 H Plt Count (130 - 400 /CUMM) 435 H MPV (7.4 - 10.4 FL) 7.5 Gran % (42.2 - 75.2 %) 77.3 H Lymphocytes % (20.5 - 51.1 %) 15.3 L Monocytes % (1.7 - 9.3 %) 6.1 Eosinophils % (0 - 5 %) 1.0 Basophils % (0.0 - 2.0 %) 0.3 Absolute Granulocytes (1.4 - 6.5 /CUMM) 6.2 Absolute Lymphocytes (1.2 - 3.4 /CUMM) 1.2 Absolute Monocytes (0.10 - 0.60 /CUMM) 0.5 Absolute Eosinophils (0.0 - 0.7 /CUMM) 0.1 Absolute Basophils (0.0 - 0.2 /CUMM) 0 Last 24 Hours of Gustavo Results: No blood cultures were obtained yesterday Disc aspirate L5-S1, fluid aspirate L5-S1 and bone cultures October 26 pending Recent Imaging Studies: CTA of the chest October 26 no evidence of pulmonary emboli; peripheral interlobular septal thickening suspicious for interstitial edema, with associated multifocal patchy regions of groundglass opacification bilaterally, with small bilateral pleural effusions Echocardiogram October 26 reveals a thickened aortic valve with a large echodensity consistent with a vegetation on the noncoronary cusp of the aortic valve, with moderate to severe aortic regurgitation Assessment/Plan ID Impression: 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 The discitis/osteomyelitis is likely secondary to seeding from a bacteremia, with the cultures from today's procedure pending. He adamantly denied IV drug abuse yesterday, though further history was obtained that he has used IV drugs in the past. Unfortunately blood cultures were not obtained yesterday, and they will need to be done today. He is scheduled to be transferred to [place] today and can be started empirically on antibiotics pending blood and disc space/bone cultures. Suggestion: 1. Obtain blood cultures 3 now 2. Follow-up cultures from the recent disc space aspirate/bone 3. Await transfer to [place] 4. Would begin Vancomycin 1250 mg IV every 12 hours pending above
--- NOTE | 2017-10-26 15:18 | CT SCAN REPORT ---
PROCEDURE: CT-GUIDED BONE BIOPSY CLINICAL INFORMATION: 31 year old male with osteomyelitis discitis at L5-S1 with adjacent epidural phlegmon. Severe low back pain, night sweats, weight loss. Patient presents to Interventional Radiology for L5-S1 bone biopsy and disc aspiration. ORDERING CLINICIAN: Alicia Myers MD PERFORMING CLINICIAN: Sharan Streeter MD ACCESS: 11-gauge On-control coaxial needle CONTRAST: None MEDICATIONS: 10 ml of 1% lidocaine was used to obtain local anesthesia CONSCIOUS SEDATION: The patient received intravenous conscious sedation under my direct supervision. A registered nurse monitored the patient and the patient's vital signs throughout the procedure. The total sedation time was 60 minutes. A total of 3 mg of Versed and 200 mcg fentanyl was given for good effect. SPECIMEN: The specimen was sent for microbiology and pathology. The specimen was appropriately labeled and sent to the laboratory for evaluation with request to inform the referring physician of results HISTORY: Kayden Peralta is a 31 year old Male who was recently found to have a suspicious MRI findings for osteomyelitis discitis at L5-S1. He was referred for percutaneous needle biopsy and aspiration of the L5-S1 disc space and bone. CONSENT: Informed consent was obtained from the patient prior to the procedure. During this process, the procedure and potential alternatives was explained along with the intended outcome and benefits. The risks of the procedure, including the possibility of an unsuccessful procedure, as well as the risk of not doing the procedure were discussed. The patient was given the opportunity to ask any questions regarding the procedure and appeared competent to make medical decisions. A signed consent form which documents this discussion was placed in the medical record. TECHNIQUE: The patient was brought to the CAT scan room and placed in the prone position. CAT scan images of the lumbar spine were obtained to localize L5-S1 disc space. The patient's left lower lumbar spine region was prepped and draped in standard sterile fashion. 10 ml of 1% lidocaine was used to obtain local anesthesia of the skin and deeper tissues. A 11-gauge On-Control coaxial needle was passed through the skin and placed into the the left S1 vertebral body directed superiorly towards the L5-S1 disc space using CT fluoroscopic guidance. A 13-gauge core needle was advanced through the superior endplate of the S1 vertebral body. A core needle sample was submitted for pathology and 1 for microbiology. Next, aspiration of the L5-S1 disc space was performed through the 13-gauge biopsy device. Specimens were submitted for microbiology. The access needle was removed, manual compression was held for 10 contiguous minutes and hemostasis was obtained. A sterile occlusive occlusive dressing was applied. The patient tolerated procedure well without complications. He was transferred to the recovery room in good condition for further observation. FLUOROSCOPY TIME: 24 seconds CONCLUSION: CT-guided L5-S1 disc aspiration and bone biopsy.
== END 2017-10-26 15:29 | disposition short-term general hospital (02) | DRG 344 ==
LOC: ERH 05:27 → ERHI 08:54 → 2NA 08:54 → 1NO 08:54 → CANRESERV 10:21 → ENRESERV 10:21 → 1NO 10:42 → ENRESERV 10:56 → 2NA 11:22 → 1NO 10-26 01:30
PROVIDERS: Emergency Medicine; Student in an Organized Health Care Education/Training Program
PROC: 0DJ08ZZ Inspection of Upper Intestinal Tract, Via Natural or Artificial Opening Endoscopic (ICD-10-PCS; principal; 2017-10-25)
PROC: 30233N1 Transfusion of Nonautologous Red Blood Cells into Peripheral Vein, Percutaneous Approach (ICD-10-PCS; 2017-10-25)
PROC: 009U3ZX Drainage of Spinal Canal, Percutaneous Approach, Diagnostic (ICD-10-PCS; 2017-10-25)
DX: M46.27 Osteomyelitis of vertebra, lumbosacral region (principal); M46.47 Discitis, unspecified, lumbosacral region; G57.00 Lesion of sciatic nerve, unspecified lower limb; J45.909 Unspecified asthma, uncomplicated; D50.9 Iron deficiency anemia, unspecified; E87.70 Fluid overload, unspecified; R00.0 Tachycardia, unspecified; F11.90 Opioid use, unspecified, uncomplicated; F12.929 Cannabis use, unspecified with intoxication, unspecified; F17.210 Nicotine dependence, cigarettes, uncomplicated; I35.1 Nonrheumatic aortic (valve) insufficiency; I33.0 Acute and subacute infective endocarditis; B95.7 Other staphylococcus as the cause of diseases classified elsewhere; M48.061 Spinal stenosis, lumbar region without neurogenic claudication
CPT/HCPCS: 2NAP; 72148; 87070; 87075; 87184; 36415; 36592; 71045; 72110; 77012; 80307; 81003; 82436; 86920; 87040; 87147; 87389; 88307; 93005; 93010; 93306; 96374; 96375; J0131; J1650; J1885; J2310; J3490; P9016